=== PATIENT | male | born 1985 | race Caucasian/White ===

== ENCOUNTER → 2016-07-17 | Outpatient (CLI) | payer OTHER ==
[~2016-07-17] MED LIST: GADOBUTROL 10 MMOL/10 ML (GADAVIST) VIAL IV ONE
--- NOTE | 2016-07-17 12:12 | Diagnostic Imaging Report ---
PROCEDURE: MR imaging of the brain with and without contrast. TECHNIQUE: Multiplanar, multisequence MR imaging of the brain was performed with and without contrast. INDICATION: 3 to 4 months history of intermittent head pain. COMPARISON: I have no priors. FINDINGS: There are no foci of abnormal diffusion restriction. There are no findings of an acute or subacute ischemic infarct. No white matter pathology or cerebral edema. There is no mass or mass effect. Following the administration of intravenous contrast, there is no abnormal or suspicious enhancement. There is a mucus retention cyst within the right greater than left maxillary sinuses. No paranasal sinus air-fluid level. Brainstem, posterior fossa, and cerebellopontine angles unremarkable. There is no mastoid effusion. IMPRESSION: Mucus retention cyst in the maxillary sinuses, brain MRI otherwise normal. Dictated by: Dictated on workstation # [id number]
== END ==
LOC: RAD 10:14
PROVIDERS: ATTEND Family Medicine
DX: R51 Headache (principal); R41.3 Other amnesia
CPT/HCPCS: 70553

== ENCOUNTER → 2017-09-12 | Outpatient (CLI) | payer OTHER ==
--- NOTE | 2017-09-12 15:15 | Diagnostic Imaging Report ---
INDICATION: Neck pain. EXAMINATION: Cervical spine. AP, lateral and odontoid views were obtained. COMPARISON: There are no prior studies available for comparison. FINDINGS: On the lateral view, there is slight anterior angulation of the upper three cervical segments. This may be a sequela of prior trauma. The vertebral body heights are within normal limits. There is no fracture or acute bony abnormality evident. There is mild narrowing of the disc space at C5-6. The other intervertebral spaces are fairly well-maintained. There is no sign of retropharyngeal edema. The lung apices are clear. IMPRESSION: 1. There is no evidence for an acute bony abnormality. 2. There is mild degenerative disc disease at C5-6. 3. If there is clinical concern regarding spinal stenosis or nerve root encroachment, then MRI would be recommended for further study. Dictated by: Dictated on workstation # [id number]
== END ==
LOC: RAD 14:05
PROVIDERS: ATTEND Nurse Practitioner Family
DX: M50.322 Other cervical disc degeneration at C5-C6 level (principal)
CPT/HCPCS: 72040

== ENCOUNTER → 2017-09-19 | Outpatient (CLI) | payer OTHER ==
--- NOTE | 2017-09-19 08:26 | Diagnostic Imaging Report ---
PROCEDURE: MR imaging cervical spine without contrast. TECHNIQUE: Multiplanar, multisequence MR imaging of the cervical spine was performed without contrast. INDICATION: Chronic neck pain as well as right arm pain with numbness and tingling. Curvature and alignment of the cervical spine is normal. The vertebral body marrow signal is normal. There is fairly normal height and signal intensity to the cervical intervertebral discs. The cervical spinal cord does show an area of slightly prominent and vertically oriented fluid signal within the central portion of the cord at the level of C4-5. This measures approximately 10 mm cephalocaudal x 3 mm AP. Features are most suggestive of a small syrinx. No expansion of the spinal cord is identified. No focal disc protrusion, central canal or neuroforaminal stenosis is seen. There is some mild broad-based disc/osteophyte complex indenting the ventral thecal sac at the C5-6 level. The paraspinous tissues are unremarkable. IMPRESSION: 1. Fluid signal noted within the central aspect of the spinal cord at C4-5 level suggestive of a small syrinx. No abnormal expansion of the spinal cord is identified. There is no evidence of focal disc protrusion, central canal or neural foraminal stenosis. Dictated by: Dictated on workstation # [id number]
== END ==
LOC: RAD 07:28
PROVIDERS: ATTEND Physician Assistant
DX: M54.2 Cervicalgia (principal); G89.4 Chronic pain syndrome; M79.601 Pain in right arm; R20.0 Anesthesia of skin; R20.2 Paresthesia of skin
CPT/HCPCS: 72141

== ENCOUNTER 2018-07-05 08:31 | Outpatient (RCR) | payer OTHER | END 2018-10-03 | disposition home or self-care (01) | LOC: CARD 08:31 | PROVIDERS: ATTEND Nurse Practitioner Family | DX: R00.2 Palpitations (principal) | CPT/HCPCS: 93225; 93226 ==

== ENCOUNTER → 2018-08-14 | Outpatient (CLI) | payer OTHER | LOC: CARD 08:34 | PROVIDERS: ATTEND Internal Medicine Cardiovascular Disease | DX: R07.89 Other chest pain (principal); R00.2 Palpitations; R06.02 Shortness of breath | CPT/HCPCS: 93225; 93226 ==

== ENCOUNTER → 2018-09-10 | Outpatient (CLI) | payer OTHER | LOC: CARD 10:00 | PROVIDERS: ATTEND Internal Medicine Cardiovascular Disease | DX: R07.89 Other chest pain (principal); R00.2 Palpitations; R06.02 Shortness of breath | CPT/HCPCS: 93306; 93351 ==

== ENCOUNTER → 2019-12-10 | Outpatient (CLI) | payer OTHER ==
--- NOTE | 2019-12-10 17:24 | Diagnostic Imaging Report ---
EXAMINATION: US Scrotum w/ Duplex TECHNIQUE: Multiple real-time grayscale images were obtained of the scrotum in various projections bilaterally. Color Doppler images were also obtained. HISTORY: Right testicular pain. COMPARISON: None available. FINDINGS: The right testicle measures 4.0 x 2.2 x 2.9 cm. The left testicle measures 4.4 x 2.5 x 3.1 cm. Both testes are normal in echogenicity. No mass is seen. There are small bilateral hydroceles. There is a large left-sided varicocele. Right epididymis is normal. Left epididymis is not well seen due to the large varicocele. Duplex images reveal normal arterial inflow to both testes. IMPRESSION: 1. Large left varicocele with small bilateral hydroceles. Dictated by: Dictated on workstation # [id number]
== END ==
LOC: RAD 15:30
PROVIDERS: ATTEND Nurse Practitioner Family
DX: I86.1 Scrotal varices (principal); N43.3 Hydrocele, unspecified; K59.00 Constipation, unspecified
CPT/HCPCS: 76870

== ENCOUNTER 2020-01-05 05:35 | Outpatient (RCR) | payer OTHER ==
[~2020-01-05] VITALS: Ht 177.8 cm; Wt 77.8 kg
== END 2020-01-05 10:27 | disposition home or self-care (01) ==
LOC: PREOP 05:35
PROVIDERS: ATTEND Surgery
DX: Z01.812 Encounter for preprocedural laboratory examination (principal); K40.90 Unilateral inguinal hernia, without obstruction or gangrene, not specified as recurrent; Z20.828 Contact with and (suspected) exposure to other viral communicable diseases
CPT/HCPCS: 87635

== ENCOUNTER 2020-01-08 09:31 | Day surgery (SDC) | payer OTHER ==
[~2020-01-08] VITALS: Ht 177.8 cm; Wt 77.8 kg
[2020-01-08] VITALS (9 sets, daily range): BP systolic 109–139; BP diastolic 68–99
--- NOTE | 2020-01-08 09:41 | Progress Note-Pre Operative ---
Pre-Operative Progress Note H&P Reviewed The H&P was reviewed, patient examined and no changes noted. Date Seen by Provider: Jan 08, 2020 Time Seen by Provider: :40 Date H&P Reviewed: Jan 08, 2020 Time H&P Reviewed: :40 Pre-Operative Diagnosis: sx reducible right inguinal hernia LUIS MANUEL BUTLER MD Jan 08, 2020 09:41
[2020-01-08] MEDS ORDERED: HYDR-3817 PO ×2 (09:43)
--- NOTE | 2020-01-08 09:44 | Discharge Inst-Surgical ---
D/C Lap Instructions-LUKE New, Converted, or Re-Newed RX: RX on Chart Follow Up Appt in 2 weeks Activity as tolerated No driving for 24 hours No [address] while on pain medications Incentive Spirometry use every 2 hours while awake Regular Diet Symptoms to Report: Fever over 101 degree F, Nausea/Vomiting Infection Signs and Symptoms to report: Increased redness, Foul odor of wound, Increased drainage Bathing instructions: May shower Operative Area Clean/Dry; Keep incision clean/dry If any problems/questions: Contact your physician or go to Emergency Room LUIS MANUEL BUTLER MD Jan 08, 2020 09:44
[2020-01-08] MEDS ORDERED: oxyCODONE/APAP 5/325MG (PERCOCET 5) TABLET PO PRN (09:45)
[2020-01-08] MEDS ORDERED: ONDANSETRON 4 MG/2 ML (SDV) Z0FRAN IVP PRN ×2 (09:45→13:00)
[2020-01-08] MEDS ORDERED: ceFAZolin 2 GM IV Premixed 50 ML IV ONE (09:45)
[2020-01-08] MEDS ORDERED: ACETAMINOPHEN 325 MG TABLET PO PRN (09:45)
[2020-01-08] MEDS ORDERED: morphine INJ 10 MG/ML 1ML (SYR OR VIAL) IVP PRN ×2 (09:45)
[2020-01-08] MEDS: LACTATED RINGERS 1,000 ML IV PRN ×2 (09:57→12:00)
[2020-01-08 10:04] LABS: BASOPHILS # (AUTO) 0.1 10^3/uL (0.0-0.1); BASOPHILS % (AUTO) 1 % (0-10); EOSINOPHILS # (AUTO) 0.1 10^3/uL (0.0-0.3); EOSINOPHILS % (AUTO) 3 % (0-10); HEMATOCRIT 42 % (40-54); HEMOGLOBIN 15.2 G/DL (13.3-17.7); LYMPHOCYTES # (AUTO) 1.5 X 10^3 (1.0-4.0); LYMPHOCYTES % (AUTO) 37 % (12-44); MEAN CORPUSCULAR HEMOGLOBIN 30 PG (25-34); MEAN CORPUSCULAR HGB CONC 36 G/DL (32-36); MEAN CORPUSCULAR VOLUME 83 FL (80-99); MEAN PLATELET VOLUME 9.8 FL (7.4-10.4); MONOCYTES # (AUTO) 0.4 X 10^3 (0.0-1.0); MONOCYTES % (AUTO) 10 % (0-12); NEUTROPHILS % (AUTO) 49 % (42-75); PLATELET COUNT 210 10^3/uL (130-400); RED CELL DISTRIBUTION WIDTH 12.1 % (10.0-14.5)
--- OUTSIDE RECORDS SUMMARY | 2020-01-08 10:20 | XMS REPORT | Continuity of Care Document ---
[facility] Address Unknown Phone Unavailable Care Team Providers Care Preschool Program Director Name Role Phone [facility] Unavailable Unavailable Problems Combined list of all problems from all [facility]. It does not include entries that were removed or entered in error. Problem Status Onset Date Problem Type Date of Resolution Comments Source visit for: services physical Inactive 05/25/2005 Condition DoD fracture skull frontal / parietal bone Active Condition Satisfactory postop. Excellent recovery and results. 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 Pt counseled. No intervention indicated. DoD refractive error Active Condition DoD Medications Combined list of all outpatient medications recorded within the last 15 months b y all Department of Defense and Veterans Affairs facilities, and also all patien t-reported medications. Medication Details Route Status Patient Instructions Prescription Expires Prescript ion Number Last Dispense Date Ordering Pr ovider Order Date Source AMOXICILLIN-CLAVULANATE POTASS (amoxicil dahlia/potassium clavulanate), 875-125 MG, TABLET, ORAL, [facility], 20 ea. BOTTLE Active [id number] [place], 05/06/2019 [facility] FLUCELVAX QUAD [id number] (flu vaccine qu ad [id number](4 years and older)cell derived/PF), 60MCG/.5ML, SYRINGE, INTRAMUSC, [employer] INC[employer] .5 ml SYRINGE Active [id number] 08/21/2019 BORJA, 08/23/2019 [facility] OSELTAMIVIR PHOSPHATE (oseltamivir phosp hate), 75 MG, CAPSULE, ORAL, [employer], 10 ea. BLIST PACK Active [id number] 08/28/2019 NDIAYE, 08/30/2019 [facility] Allergies, Adverse Reactions, Alerts Combined list of all allergies from all Department of Defense and Veterans Affairs facilities. It does not include entries that were removed or entered in error. Substance Category R eaction Severity Reaction type Status Date Reported Comments Source No Known Allergies Drug allergy Drug allergy active 11/01/2018 [facility] [place] [place] Immunizations Combined list of: 1) all immunizations on record at all [facility] ies, and 2) all available immunizations on record at Department of Defense (Do D) facilities. Some immunizations on record at DoD may not be included. Immunization Series Date Given Administered By Site Reaction Lot Number CVX Code Drug Automatic Packer Operator Status Comments Source Influenza, seasonal, injectable, preservative free 0 05/24/2018 140 (MVX) completed Influenza, seasonal, injectable, preservative free DoD Influenza, seasonal, injectable, preservative free 1 03/24/2017 [id number] 140 Seqirus (SEQ) completed Influenza, seasonal, injectable, preserv ative free DoD Influenza, seasonal, injectable, preservative free 1 04/01/2016 [id number] 140 Seqirus (SEQ) completed Influenza, seasonal, injectable, preserv ative free DoD Influenza, seasonal, injectable, preservative free 1 07/17/2015 [id number] 140 TRIBAX[employer] Inc[employer] (CSL) completed Influenza, seasonal, injectable, preservative free DoD varicella virus vaccine 2 10/10/2014 [id number] 21 Merck (MSD) completed varicella virus vaccine DoD measles, mumps and rubella virus vaccine 2 08/21/2014 [id number] 03 Merck (MSD) completed measles, mumps and rubella virus vaccine DoD varicella virus vaccine 1 08/21/2014 [id number] 21 Merck (MSD) completed varicella virus vaccine DoD typhoid Vi capsular polysaccharide vaccine 1 08/21/2014 [id number] 101 Sanofi Pasteur ([facility]MC) completed typhoid Vi capsular polysaccharide vacci ne DoD Influenza, seasonal, injectable, preservative free 1 03/28/2014 [id number] 140 Novartis deeplocal Alana. (NOV) completed Influenza, seasonal, injectable, preservative free DoD influenza virus vaccine, unspecified formulation 1 06/10/2013 [id number] 88 Unknown (UNK) completed influenza virus vaccine, unspecified for mulation DoD Influenza, seasonal, injectable, preservative free 1 03/24/2012 [id number] 140 [employer] (CSL) completed Influenza, seasonal, injectable, preservative free DoD influenza virus vaccine, unspecified formulation 1 04/17/2011 UNK 88 Sanofi Pasteur ([facility]MC) completed influenza virus vaccine, unspecified for mulation DoD Influenza, injectable, [place] Canin e Kidney, quadrivalent with preservative 0 04/17/2011 141 Sanofi Pasteur ([facility]) completed Influenza, injectabl e, Madin [place] Canine Kidney, quadrivalent with preservative DoD tetanus toxoid, reduced diphtheria toxoi d, and acellular pertussis vaccine, adsorbed 1 01/27/2011 [id number] 115 [facility] ([facility] completed tetanus toxoid, reduced diphtheria toxoid, and acellular pertussis vaccine, adsorbed DoD influenza virus vaccine, split virus (in cl. purified surface antigen)-retired CODE 1 04/06/2007 [id number] 15 [facility] ([facility]) completed influenza virus vaccine, split virus (incl. purified surface antigen)-retired CODE DoD hepatitis A and hepatitis B vaccine 3 05/24/2005 [id number] 104 Unknown (UNK) completed hepatitis A and hepatitis B vaccine DoD influenza virus vaccine, split virus (in cl. purified surface antigen)-retired CODE 1 04/09/2005 [id number] 15 U nknown (UNK) completed influenza virus vacc ine, split virus (incl. purified surface antigen)-retired CODE DoD anthrax vaccine 2 04/06/2004 UNK 24 Unkno wn (UNK) completed anthrax vaccine DoD anthrax vaccine 1 03/23/2004 UNK 24 Unkno wn (UNK) completed anthrax vaccine DoD vaccinia (smallpox) vaccine 1 03/23/2004 UNK 75 Unknown (UNK) completed vaccinia (smallpox) vaccine DoD hepatitis B vaccine, adult dosage 1 11/28/2003 [id number] 3 [facility] ([facility]) completed hepatitis B vaccine, adult dosage DoD hepatitis A vaccine, adult dosage 1 11/28/2003 [id number] 52 [facility] ([facility]) completed hepatitis A vaccine, adult dosage DoD typhoid Vi capsular polysaccharide vaccine 1 11/28/2003 [id number] 101 [employer] ([facility]) completed typhoid Vi capsular polysaccharide vacci ne DoD influenza virus vaccine, split virus (in cl. purified surface antigen)-retired CODE 1 04/10/2003 [id number] 15 Un known (UNK) completed influenza virus vacc ine, split virus (incl. purified surface antigen)-retired CODE DoD measles, mumps and rubella virus vaccine 1 02/26/2003 [id number] 03 Merck (MSD) completed measles, mumps and rubella virus vaccine DoD tetanus and diphtheria toxoids, adsorbed , preservative free, for adult use (2 Lf of tetanus toxoid and 2 Lf of diphtheria toxoid) 1 02/26/2003 [id number] 09 Unknown (UNK) completed tetanus and diphtheria toxoids, adsorbed , preservative free, for adult use (2 Lf of tetanus toxoid and 2 Lf of diphtheria toxoid) [facility] poliovirus vaccine, inactivated 1 02/26/2003 [id number] 10 Unknown (UNK) completed poliovirus vaccine, inactivated DoD meningococcal vaccine of unknown formula tion and unknown serogroups 1 02/26/2003 [id number] 32 Unknown (UNK) completed meningococcal vaccin e of unknown formulation and unknown serogroups DoD hepatitis A and hepatitis B vaccine 1 02/26/2003 [id number] 10 4 Unknown (UNK) completed hepatitis A and hepatitis B vaccine [facility] Results No Data Provided for This Section Vital Signs Combined list of inpatient and outpatient Vital Signs from all [facility] and/or [facility] medical facilities within the last 15 months. The included entries comply with the patient's data sharing authorizations. Vital Sign Value Date Comments Source Blood pressure, systolic (BPS), 124mm[Hg] 11/01/2018 14:05:18 [place] [facility] Janette SHABAZZ Respiratory rate (breaths) 19/ min [facility]01[facility]2018 [facility] Pulse taking 65/min 11/01/2018 14:05:18 [facility] Janette SHABAZZ Blood pressure, diastolic (BPD) 81mm[Hg] 11/01/2018 14:05:18 [facility] Janette SHABAZZ BMI 24.39kg/m2 11/01/2018 14:05:18 [place] [facility] Janette SHABAZZ Patient's height value 70[in_i] 11/01/2018 14:05:18 [place] [facility] Janette SHABAZZ BSA 1.95m2 0 11/01/2018 [facility] Weight (body weight) 170[lb_av] 11/01/2018 14:05:18 [place] [facility] Janette SHABAZZ Encounters Combined list of encounters at Department of Defense and/or Veterans Affairs (VA ) for the last 15 months. Not all VA inpatient encounters are included. The incl uded entries comply with the patient's data sharing authorizations. Location Location Details Encounter Type Encounter Number Reason For Visit Attending Provider ADM Date DC Date Status Disposition Source OUTPATIENT [id number] W JASSIRAJEEV Margarito 03/25/2004 Released w/o Limitations [place]) OUTPATIENT [id number] Facial Fracture DOSS, MARK Jeaneth 05/25/2005 Released w/o Limitations [place] TELE CONSU LT [id number] Notes Entered by: JEAN-PAUL RAJPUT 22 Oct 2018 1538 VIRTUAL PHA - ADRIÁN VAN 10/22/2018 [facility] HARIKA Hairston([facility] [place]) OUTPATIENT [id number] KATHRYN ROJAS 10/30/2018 Released w/o Limitations [facility] Karissa [place]([facility] [place] Procedures Combined list of general procedure/surgical history for the last 15 months on re cord at Department of Defense and Veterans Affairs (VA) facilities. Not all VA p rocedures are included. Procedure Procedure Type Code Date Perfomer Comments Source Preventive Med Standardized Depression S creening: Negative For Symptoms Preventive Med Standardized Depression S creening: Negative For Symptoms 3351F KATHRYN OCONNELL DoD Social History Combined list of available smoking, tobacco, and other social history on record at Department of Defense and/or Veterans Affairs facilities. The included entrie s comply with the patient's data sharing authorizations. Social History Type Response Date Comment Source This section is an empty social history section. DoD Assessment and Plan No Data Provided for This Section Plan of Care No Data Provided for This Section Family History No Data Provided for This Section Advance Directives No Data Provided for This Section Functional Status No Data Provided for This Section
--- OUTSIDE RECORDS SUMMARY | 2020-01-08 10:20 | XMS REPORT | CCD ---
Author Author Malvin Villegas Organization [facility] Address [address] [place] [address] Phone Care Team Providers Care Supervisor [employer] Name Role Phone PP Unavailable CCM Unavailable Summary Purpose Interface Exchange Insurance Providers Payer name Policy type / Coverage type Covered alliance party ID Effective Begin Date Effective End Date MARYANNE BULL (2012 THRU) Emma [id number] Unknown Unknown Family history Father Diagnosis Age At Onset Cardiomyopathy Unknown Social History Social History Element Codes Description Effective Dates Marital status Unknown M kenya Griffith 12/19/2017 Number of children Unknown 3 09/29/[address]: 760468498 Never smoker 09/29/2015 Alcohol history Unknown occasionally drinks alcohol 09/29/2015 Allergies, Adverse Reactions, Alerts Substance Reaction Codes Entered Date Inactivated Date Status * NO KNOWN DRUG JERRY RGIES Unknown 09/29/2015 No Inactive Date Active Past Medical History Illness Codes Condition Status Onset Date Resolved Date Other insomnia ICD-9: 327.09 ICD-10: G47.09 Active 07/01/2018 Unknown Pain in right knee ICD- 9: 719.46 ICD-10: M25.561 Active 07/01/2018 Unknown Palpitations ICD-9: 785.1 ICD-10: R00.2 Active 07/01/2018 Unknown Other acute sinusitis ICD-9: 461.8 ICD-10: J01.80 Active 02/10/2016 Unknown Other allergic rhinitis ICD-9: 477.8 ICD-10: J30.89 Active 05/13/2018 Unknown 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] ICD-9: 733.6 ICD-10: M94.0 Active 12/19/2017 Unknown Dizziness and giddiness ICD-9: 780.4 ICD-10: R42 Active 12/19/2017 Unknown Other allergic and d ietetic gastroenteritis and colitis ICD-9: 558.3 ICD-10: K52.29 Active 12/19/2017 Unknown Cervicalgia ICD-9: 723.1 ICD-10: M54.2 Active 09/13/2017 Unknown Muscle spasm of back ICD-9: 724.8 ICD-10: M62.830 Active 09/13/2017 Unknown Diabetes Unknown Active 10/23/2016 Unknow n Acute recurrent maxi llary sinusitis ICD-9: 461.0 ICD-10: J01.01 Active 04/06/2016 Unknown Cough ICD-9: 786.2 ICD-10: R05 Active 04/06/2016 Unknown Headache ICD-9: 784.0 ICD-10: R51 Active 06/26/2016 Unknown Other headache syndrome ICD-9: 339.89 ICD-10: G44.89 Active 06/26/2016 Unknown Retrograde amnesia ICD- 9: 780.93 ICD-10: R41.2 Active 06/26/2016 Unknown Other hypertrophic d isorders of the skin ICD-9: 701.9 ICD-10: L91.8 Active 12/01/2015 Unknown Acute upper respirat ory infection, unspecified ICD-9: 465.9 ICD-10: J06.9 Active 09/28/2015 Unknown Problems Condition Codes Effectiv e Dates Condition Status Other insomnia ICD-9: 327.09 ICD-10: G47.09 07/01/2018 Active Pain in right knee ICD- 9: 719.46 ICD-10: M25.561 07/01/2018 Active Palpitations ICD-9: 785.1 ICD-10: R00.2 07/01/2018 Active Other acute sinusitis ICD-9: 461.8 ICD-10: J01.80 02/10/2016 Active Other allergic rhinitis ICD-9: 477.8 ICD-10: J30.89 05/13/2018 Active 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] ICD-9: 733.6 ICD-10: M94.0 12/19/2017 Active Dizziness and giddiness ICD-9: 780.4 ICD-10: R42 12/19/2017 Active Other allergic and d ietetic gastroenteritis and colitis ICD-9: 558.3 ICD-10: K52.29 12/19/2017 Active Cervicalgia ICD-9: 723.1 ICD-10: M54.2 09/13/2017 Active Muscle spasm of back ICD-9: 724.8 ICD-10: M62.830 09/13/2017 Active Diabetes Unknown 10/23/2016 Active Acute recurrent maxi llary sinusitis ICD-9: 461.0 ICD-10: J01.01 04/06/2016 Active Cough ICD-9: 786.2 ICD-10: R05 04/06/2016 Active Headache ICD-9: 784.0 ICD-10: R51 06/26/2016 Active Other headache syndrome ICD-9: 339.89 ICD-10: G44.89 06/26/2016 Active Retrograde amnesia ICD- 9: 780.93 ICD-10: R41.2 06/26/2016 Active Other hypertrophic d isorders of the skin ICD-9: 701.9 ICD-10: L91.8 12/01/2015 Active Acute upper respirat ory infection, unspecified ICD-9: 465.9 ICD-10: J06.9 09/28/2015 Active Medications Medication Codes Instruc tions Start Date Stop Date Sta tus Fill Instructions Tamiflu 75 mg capsule RxNorm: 344033 1 Capsule(s) PO daily 07/19/2018 07/28/2018 Active Tamiflu 75 mg capsule RxNorm: 856647 1 Capsule(s) PO daily 07/19/2018 07/18/2018 Inactive Augmentin 875 mg-125 mg tablet RxNorm: 589501 1 Tablet(s) PO BID 05/13/2018 05/19/2018 Inactive Kenalog 40 mg/mL chacha pension for injection RxNorm: 5102899 1 Milliliter(s) Inj 05/13/2018 05/13/2018 In active propranolol 10 mg ta blet RxNorm: 365139 1/2 Tablet(s) daily 12/19/2017 12/21/2018 Active 11/19/2017 11:27:19 AM propranolol 10 mg ta blet RxNorm: 921151 TAKE 1 TABLET BY MOUT H TWICE DAILY 11/20/2017 12/18/2017 In active 11/19/2017 11:27:19 AM cyclobenzaprine 5 mg tablet RxNorm: 578002 1-2 Tablet(s) PO TID as needed 09/13/2017 09/17/2017 In active Zorvolex 18 mg capsule RxNorm: 2263922 1 Capsule(s) PO TID 09/13/2017 12/18/2017 Inactive propranolol 10 mg ta blet RxNorm: 889159 1 Tablet(s) PO BID 06/07/2017 09/04/2017 Inactive prednisone 20 mg tablet RxNorm: 985925 2 Tablet(s) PO daily 10/23/2016 10/27/2016 Inactive Augmentin 875 mg-125 mg tablet RxNorm: 426106 1 Tablet(s) PO BID 10/23/2016 10/29/2016 Inactive propranolol 10 mg ta blet RxNorm: 198762 1 Tablet(s) PO BID 06/29/2016 09/26/2016 Inactive Fish Oil 360 mg-1,20 0 mg capsule RxNorm: 852130 1 Capsule(s) PO BID 06/29/2016 12/18/2017 Inactive propranolol 10 mg ta blet RxNorm: 463188 1 Tablet(s) PO BID 06/27/2016 06/28/2016 Inactive ceftriaxone 500 mg s olution for injection RxNorm: 9195940 Inj 04/07/2016 04/07/2016 Inactive Kenalog 40 mg/mL chacha pension for injection RxNorm: 9910738 Milliliter(s) Inj 04/07/2016 04/07/2016 In active Zithromax Z-Devon 250 mg tablet RxNorm: 097039 1 Tablet(s) PO UD 04/07/2016 04/11/2016 Inactive zpack Augmentin 875 mg-125 mg tablet RxNorm: 077465 1 Tablet(s) PO BID 02/11/2016 02/20/2016 Inactive Zithromax Z-Devon 250 mg tablet RxNorm: 923632 Tablet(s) PO UD 09/29/2015 12/01/2015 Inactive Sudafed 24 Hour oral RxNorm: 47628 oral No Start Date Active Fish Oil 360 mg-1,20 0 mg capsule RxNorm: 205226 1 Capsule(s) PO BID No Start Date 06/28/2016 Inactive Medication Administered Medication Codes Instruc tions Start Date Status Kenalog 40 mg/mL suspension for injection RxNorm: 3863496 1Milliliter 05/13/2018 N o longer Active ceftriaxone 500 mg solution for injection RxNorm: 9050222 04/07/2016 No longer A ctive Kenalog 40 mg/mL suspension for injection RxNorm: 8865243 Milliliter 04/07/2016 No longer Active Immunizations Vaccine Codes Date Status Influenza CVX: 141 05/24 completed Influenza CVX: 141 12/09 completed Assessments Condition Codes Effectiv e Dates Other insomnia ICD-10: G47.09 ICD-9: 327.09 07/01/2018 Pain in right knee ICD-10: M25.561 ICD-9: 719.46 07/01/2018 Palpitations ICD-10: R00.2 ICD-9: 785.1 07/01/2018 Other acute sinusitis ICD-10: J01.80 ICD-9: 461.8 05/13/2018 Other allergic rhinitis ICD-10: J30. 89 ICD-9: 477.8 05/13/2018 Other allergic and dietetic gastroenteritis and coliti s ICD- 10: K52.29 ICD-9: 558.3 12/19/2017 Chondrocostal junction syndrome [Tietze] ICD-10: M94.0 ICD-9: 733.6 12/19/2017 Dizziness and giddiness ICD-10: R42 ICD-9: 780.4 12/19/2017 Cervicalgia ICD-10: M54.2 ICD-9: 723.1 09/13/2017 Muscle spasm of back ICD-10: M62.830 ICD-9: 724.8 09/13/2017 Acute recurrent maxillary sinusitis ICD-10: J01.01 ICD-9: 461.0 10/23/2016 Cough ICD-10: R05 ICD-9: 786.2 10/23/2016 Headache ICD-10: R51 ICD-9: 784.0 06/27/2016 Retrograde amnesia ICD-10: R41.2 ICD-9: 780.93 06/27/2016 Other headache syndrome ICD-10: G44. 89 ICD-9: 339.89 06/27/2016 Other hypertrophic disorders of the skin ICD-10: L91.8 ICD-9: 701.9 12/02/2015 Acute upper respiratory infection, unspecified ICD-10: J06.9 ICD-9: 465.9 09/29/2015 Reason For Visit Reason For Visit Effective Dates Notes insomnia 07/01/2018 he h as tried melatonin- he says made it worse sinus congestion 05/13/2018 chest pain/pressure 12/19/2017 neck pain 09/13/2017 sinus congestion 10/23/2016 headache 06/27/2016 cough 04/07/2016 sinus congestion 02/11/2016 mole check 12/02/2015 cough 09/29/2015 Results Observation Observation Code Item Item Code Result Date Sed Rate Ord21 ESR 1 mm/hr 06/28/2016 C-Reactive Protein Qnt Crqnt CRP 0.1 mg/dl 06/28/2016 Cbc With Differential Ord2 WBC 5.22 K/ul 06/28/2016 Cbc With Differential Ord2 RBC 5.01 M/ul 06/28/2016 Cbc With Differential Ord2 HGB 15.3 g/dl 06/28/2016 Cbc With Differential Ord2 Neut% 49.8 % 06/28/2016 Cbc With Differential Ord2 HCT 42.7 % 06/28/2016 Cbc With Differential Ord2 Lymph% 33.3 % 06/28/2016 Cbc With Differential Ord2 MCV 85.2 fl 06/28/2016 Cbc With Differential Ord2 MCH 30.5 pg 06/28/2016 Cbc With Differential Ord2 [place]% 12.8 % 06/28/2016 Cbc With Differential Ord2 MCHC 35.8 pg 06/28/2016 Cbc With Differential Ord2 Eos% 3.1 % 06/28/2016 Cbc With Differential Ord2 Baso% 1.0 % 06/28/2016 Cbc With Differential Ord2 PLT 211 K/ul 06/28/2016 Cbc With Differential Ord2 RDW 12.8 % 06/28/2016 Cbc With Differential Ord2 Neut ABS# 2.60 K/ul 06/28/2016 Cbc With Differential Ord2 Lymph ABS# 1.74 K/ul 06/28/2016 Cbc With Differential Ord2 [place] ABS# 0.7 K/ul 06/28/2016 Cbc With Differential Ord2 Eos ABS# 0.2 K/ul 06/28/2016 Cbc With Differential Ord2 Baso ABS# 0.1 K/ul 06/28/2016 Comp Metabolic Ven232 NA 140 mEq/L 06/28/2016 Comp Metabolic Wyp695 K 4.1 mEq/L 06/28/2016 Comp Metabolic Ius019 CL 104 mEq/L 06/28/2016 Comp Metabolic Ulb175 CO2 28.0 mEq/L 06/28/2016 Comp Metabolic Lni636 AN ION GAP 12 06/28/2016 Comp Metabolic Uoc927 GL UCOSE 93 mg/dL 06/28/2016 Comp Metabolic Jev944 Cr eat 1.0 mg/dL 06/28/2016 Comp Metabolic Gro863 eG FR 97 ml/min/1.73m2 06/28 Comp Metabolic Yum271 BUN 12 mg/dL 06/28/2016 Comp Metabolic Amc679 B/ C Ratio 12.6 Ratio 06/28/2016 Comp Metabolic Rkl562 CA LCIUM 9.6 mg/dL 06/28/2016 Comp Metabolic Yoq059 AL K PHOS 73 U/L 06/28/2016 Comp Metabolic Epe061 T(SGOT) 18 U/L 06/28/2016 Comp Metabolic Etq804 AL T(SGPT) 31 U/L 06/28/2016 Comp Metabolic Ltl946 BI LI T 0.5 mg/dL 06/28/2016 Comp Metabolic Mwc431 AL BUMIN 4.8 g/dL 06/28/2016 Comp Metabolic Qla322 TP RO 6.9 g/dL 06/28/2016 Comp Metabolic Pzw613 GL OB 2.1 g/dL 06/28/2016 Comp Metabolic Blk242 A/ G Ratio 2.2 Ratio 06/28/2016 Comp Metabolic Njk150 Os mo 279 mOsmo 06/28/2016 Tsh Ord6 hTSH II 1.35 uIU/mL 06/28/2016 Lipid Ord30 CHOL 237 mg/dL 06/28/2016 Lipid Ord30 HDL 42.0 mg/dl 06/28/2016 Lipid Ord30 TRIG 126 mg/dL 06/28/2016 Lipid Ord30 LDL 170 mg/dL 06/28/2016 Lipid Ord30 C/HDL 5.6 Ratio 06/28/2016 Review of Systems System Result Effective Dates Constitutional No anorexia 07/01/2018 Constitutional No night sweats 07/01/2018 Constitutional No chills 07/01/2018 Constitutional No diaphoresis 07/01/2018 Constitutional No fatigue 07/01/2018 Constitutional No fever 07/01/2018 Constitutional insomnia 07/01/2018 Constitutional No malaise 07/01/2018 Eyes No eye discharge Eyes No eye erythema Ears/Nose/Throat/Neck headache 07/01/2018 Ears/Nose/Throat/Neck No sore throat 07/01/2018 Ears/Nose/Throat/Neck sinus congestion 07/01/2018 Cardiovascular No chest pain/pressure 07/01/2018 Cardiovascular No dyspnea 07/01/2018 Respiratory No chest congestion 07/01/2018 Respiratory No cough Respiratory No dyspnea on exertion 07/01/2018 Gastrointestinal No abdominal pain 07/01/2018 Gastrointestinal No constipation 07/01/2018 Gastrointestinal No diarrhea 07/01/2018 Genitourinary/Nephrology No dysuria 07/01/2018 Musculoskeletal joint complaint 07/01/2018 Dermatologic No rash Psychiatric No anxiety 0 07/01/2018 Psychiatric No depression 07/01/2018 Constitutional No weight loss 07/01/2018 Constitutional No weight gain 07/01/2018 Cardiovascular palpitations 07/01/2018 Neurologic No alteration of consciousness 07/01/2018 Constitutional recent illness 05/13/2018 Constitutional No chills 05/13/2018 Constitutional No diaphoresis 05/13/2018 Constitutional No fever 05/13/2018 Eyes No eye erythema 08/2017 Ears/Nose/Throat/Neck nasal allergies 05/13/2018 Ears/Nose/Throat/Neck nasal discharge 05/13/2018 Ears/Nose/Throat/Neck postnasal drip 05/13/2018 Ears/Nose/Throat/Neck sinus congestion 05/13/2018 Ears/Nose/Throat/Neck No sore throat 05/13/2018 Cardiovascular No chest pain/pressure 05/13/2018 Cardiovascular No dyspnea 05/13/2018 Respiratory No chest congestion 05/13/2018 Respiratory cough 2017 Respiratory No dyspnea 1 07/14/2017 Gastrointestinal No abdominal pain 05/13/2018 Gastrointestinal No constipation 05/13/2018 Gastrointestinal No diarrhea 05/13/2018 Gastrointestinal No nausea 05/13/2018 Gastrointestinal No vomiting 05/13/2018 Dermatologic No rash 08/2017 Neurologic No alteration of consciousness 05/13/2018 Neurologic No mental status change 05/13/2018 Constitutional No recent illness 12/19/2017 Constitutional No chills 12/19/2017 Constitutional No fever 12/19/2017 Eyes No blindness 2017 Ears/Nose/Throat/Neck No nasal discharge 12/19/2017 Cardiovascular chest pain/pressure 12/19/2017 Cardiovascular No dyspnea 12/19/2017 Respiratory No cough 04/2018 Respiratory No dyspnea 0 12/19/2017 Musculoskeletal neck pain 12/19/2017 Neurologic No alteration of consciousness 12/19/2017 Neurologic No mental status change 12/19/2017 Gastrointestinal No abdominal pain 12/19/2017 Gastrointestinal diarrhea 12/19/2017 Psychiatric No anxiety 0 12/19/2017 Psychiatric No depression 12/19/2017 Constitutional No recent illness 09/13/2017 Constitutional No chills 09/13/2017 Constitutional No fever 09/13/2017 Eyes No eye erythema 10/2017 Ears/Nose/Throat/Neck No nasal discharge 09/13/2017 Cardiovascular No chest pain/pressure 09/13/2017 Cardiovascular No dyspnea 09/13/2017 Respiratory No cough 10/2017 Respiratory No dyspnea 0 09/13/2017 Neurologic No alteration of consciousness 09/13/2017 Neurologic No mental status change 09/13/2017 Musculoskeletal neck pain 09/13/2017 Constitutional recent illness 10/23/2016 Constitutional No anorexia 10/23/2016 Constitutional No night sweats 10/23/2016 Constitutional No chills 10/23/2016 Constitutional No diaphoresis 10/23/2016 Constitutional No fatigue 10/23/2016 Constitutional No fever 10/23/2016 Constitutional No insomnia 10/23/2016 Constitutional No malaise 10/23/2016 Constitutional No weight loss 10/23/2016 Constitutional No weight gain 10/23/2016 Eyes No eye discharge Eyes No eye erythema Ears/Nose/Throat/Neck No dizziness 10/23/2016 Ears/Nose/Throat/Neck headache 10/23/2016 Ears/Nose/Throat/Neck nasal allergies 10/23/2016 Ears/Nose/Throat/Neck nasal discharge 10/23/2016 Ears/Nose/Throat/Neck otalgia 10/23/2016 Ears/Nose/Throat/Neck sinus congestion 10/23/2016 Ears/Nose/Throat/Neck No sore throat 10/23/2016 Cardiovascular No chest pain/pressure 10/23/2016 Cardiovascular No dyspnea 10/23/2016 Cardiovascular No edema 10/23/2016 Respiratory No productive sputum 10/23/2016 Respiratory chest congestion 10/23/2016 Respiratory cough 2016 Respiratory dyspnea on exertion 10/23/2016 Gastrointestinal No abdominal pain 10/23/2016 Gastrointestinal No constipation 10/23/2016 Gastrointestinal No diarrhea 10/23/2016 Genitourinary/Nephrology No dysuria 10/23/2016 Musculoskeletal No joint complaint 10/23/2016 Dermatologic No rash Neurologic No alteration of consciousness 10/23/2016 Constitutional No anorexia 06/27/2016 Constitutional No night sweats 06/27/2016 Constitutional No chills 06/27/2016 Constitutional No diaphoresis 06/27/2016 Constitutional No fatigue 06/27/2016 Constitutional No fever 06/27/2016 Constitutional No insomnia 06/27/2016 Constitutional No malaise 06/27/2016 Eyes No eye discharge Eyes No eye erythema Ears/Nose/Throat/Neck headache 06/27/2016 Ears/Nose/Throat/Neck No sore throat 06/27/2016 Cardiovascular No chest pain/pressure 06/27/2016 Cardiovascular No dyspnea 06/27/2016 Respiratory No cough Gastrointestinal No abdominal pain 06/27/2016 Gastrointestinal No constipation 06/27/2016 Gastrointestinal No diarrhea 06/27/2016 Genitourinary/Nephrology No dysuria 06/27/2016 Musculoskeletal No joint complaint 06/27/2016 Dermatologic No rash Ears/Nose/Throat/Neck sinus congestion 06/27/2016 Respiratory No dyspnea on exertion 06/27/2016 Respiratory No chest congestion 06/27/2016 Neurologic vision change 06/27/2016 Neurologic memory loss 0 06/27/2016 Neurologic neck pain Neurologic headache 06/11 Psychiatric No anxiety 0 06/27/2016 Psychiatric No depression 06/27/2016 Constitutional recent illness 04/07/2016 Constitutional No anorexia 04/07/2016 Constitutional No night sweats 04/07/2016 Constitutional No chills 04/07/2016 Constitutional No diaphoresis 04/07/2016 Constitutional No fatigue 04/07/2016 Constitutional No fever 04/07/2016 Constitutional No insomnia 04/07/2016 Constitutional No malaise 04/07/2016 Eyes No eye erythema Eyes No eye discharge Ears/Nose/Throat/Neck headache 04/07/2016 Ears/Nose/Throat/Neck nasal discharge 04/07/2016 Ears/Nose/Throat/Neck otalgia 04/07/2016 Ears/Nose/Throat/Neck sinus congestion 04/07/2016 Ears/Nose/Throat/Neck No sore throat 04/07/2016 Cardiovascular No chest pain/pressure 04/07/2016 Cardiovascular No dyspnea 04/07/2016 Respiratory cough 2015 Respiratory chest congestion 04/07/2016 Gastrointestinal No abdominal pain 04/07/2016 Gastrointestinal No diarrhea 04/07/2016 Gastrointestinal No constipation 04/07/2016 Genitourinary/Nephrology No dysuria 04/07/2016 Musculoskeletal No joint complaint 04/07/2016 Dermatologic No rash Constitutional recent illness 02/11/2016 Constitutional No diaphoresis 02/11/2016 Constitutional fever 07/2015 Constitutional malaise 0 02/11/2016 Eyes No eye erythema 07/2015 Ears/Nose/Throat/Neck nasal allergies 02/11/2016 Ears/Nose/Throat/Neck nasal discharge 02/11/2016 Ears/Nose/Throat/Neck otalgia 02/11/2016 Ears/Nose/Throat/Neck postnasal drip 02/11/2016 Ears/Nose/Throat/Neck sinus congestion 02/11/2016 Cardiovascular No chest pain/pressure 02/11/2016 Cardiovascular No dyspnea 02/11/2016 Cardiovascular No edema 02/11/2016 Respiratory productive sputum 02/11/2016 Respiratory cough 2015 Gastrointestinal No nausea 02/11/2016 Gastrointestinal No vomiting 02/11/2016 Musculoskeletal No joint complaint 02/11/2016 Dermatologic No rash 07/2015 Dermatologic No sores Neurologic No alteration of consciousness 02/11/2016 Neurologic No mental status change 02/11/2016 Constitutional No chills 02/11/2016 Gastrointestinal No abdominal pain 02/11/2016 Constitutional No recent illness 12/02/2015 Constitutional No chills 12/02/2015 Constitutional No fatigue 12/02/2015 Constitutional No fever 12/02/2015 Cardiovascular No dyspnea 12/02/2015 Respiratory No cough Respiratory No chest congestion 12/02/2015 Dermatologic mole change 12/02/2015 Dermatologic acrochordon (skin tags) 12/02/2015 Constitutional recent illness 09/29/2015 Constitutional chills Constitutional No diaphoresis 09/29/2015 Constitutional No fatigue 09/29/2015 Constitutional fever Constitutional No insomnia 09/29/2015 Constitutional No malaise 09/29/2015 Eyes No eye erythema Ears/Nose/Throat/Neck nasal discharge 09/29/2015 Ears/Nose/Throat/Neck nasal allergies 09/29/2015 Ears/Nose/Throat/Neck No otalgia 09/29/2015 Ears/Nose/Throat/Neck postnasal drip 09/29/2015 Ears/Nose/Throat/Neck sinus congestion 09/29/2015 Cardiovascular No chest pain/pressure 09/29/2015 Cardiovascular No dyspnea 09/29/2015 Cardiovascular No edema 09/29/2015 Respiratory cough 2015 Respiratory productive sputum 09/29/2015 Respiratory No chest congestion 09/29/2015 Gastrointestinal No abdominal pain 09/29/2015 Gastrointestinal No constipation 09/29/2015 Gastrointestinal No diarrhea 09/29/2015 Gastrointestinal No nausea 09/29/2015 Gastrointestinal No vomiting 09/29/2015 Genitourinary/Nephrology No dysuria 09/29/2015 Musculoskeletal No joint complaint 09/29/2015 Dermatologic No rash Dermatologic No sores Neurologic No alteration of consciousness 09/29/2015 Neurologic No mental status change 09/29/2015 Physical Exam Exam Name System Name It em Name Status Result Effective Dates Notes Full Exam - General 1994 Constitutional general appearance Development: well developed 07/01/2018 None Full Exam - General 1994 Constitutional general appearance Development: appears stated age 0107/01/2018 None Full Exam - General 1994 Constitutional general appearance Hygiene/Attention to Grooming: good hygiene 07/01/2018 None Full Exam - General 1994 Eyes conjunctiva/eyelids Overall: conjunctiva clear 07/01/2018 None Full Exam - General 1994 Eyes conjunctiva/eyelids Overall: cornea clear 07/01/2018 None Full Exam - General 1994 Eyes conjunctiva/eyelids Overall: eyelids normal 07/01/2018 None Full Exam - General 1994 Eyes pupils and irises Overall: pupils equal, round, reactive to light and accomodation 07/01/2018 None Full Exam - General 1994 Ears/Nose/Throat otoscopic exam Overall: external auditory canals clear 07/01/2018 None Full Exam - General 1994 Ears/Nose/Throat otoscopic exam Overall: tympanic membranes clear 07/01/2018 None Full Exam - General 1994 Ears/Nose/Throat lips/teeth/gingiva Overall: benign lips 07/01/2018 None Full Exam - General 1994 Ears/Nose/Throat lips/teeth/gingiva Overall: normal dentition 07/01/2018 None Full Exam - General 1995 Ears/Nose/Throat oral cavity/pharynx/larynx Overall: oral mucosa clear 07/01/2018 None Full Exam - General 1995 Ears/Nose/Throat oral cavity/pharynx/larynx Overall: oropharyngeal mucosa clear 07/01/2018 None Full Exam - General 1995 Ears/Nose/Throat oral cavity/pharynx/larynx Overall: hypopharynx benign 07/01/2018 None Full Exam - General 1994 Ears/Nose/Throat oral cavity/pharynx/larynx Overall: no masses 07/01/2018 None Full Exam - General 1994 Respiratory auscultation Overall: breath sounds clear bilaterally 07/01/2018 None Full Exam - General 1994 Respiratory respiratory effort/rhythm Overall: no retractions 07/01/2018 None Full Exam - General 1994 Respiratory respiratory effort/rhythm Overall: normal rate 07/01/2018 None Full Exam - General 1994 Cardiovascular extremities Overall: no clubbing 07/01/2018 None Full Exam - General 1994 Cardiovascular auscultation of heart Overall: regular rate 07/01/2018 None Full Exam - General 1994 Cardiovascular auscultation of heart Overall: normal heart sounds 07/01/2018 None Full Exam - General 1994 Abdomen abdominal exam Overall: no tenderness 07/01/2018 None Full Exam - General 1994 Abdomen abdominal exam Overall: normal bowel sounds 07/01/2018 None Full Exam - General 1994 Neurologic deep tendon reflexes Overall: deep tendon reflexes intact 07/01/2018 None Full Exam - General 1994 Neurologic cranial nerves Overall: crainial nerves 2 - 12 grossly intact 07/01/2018 None Full Exam - General 1994 Psychiatric orientation/consciousness Overall: oriented to person, place and time 07/01/2018 None Full Exam - General 1994 Psychiatric mood and affect Overall: normal mood and affect 07/01/2018 None Full Exam - General 1994 Musculoskeletal lower extremity Overall: knee benign 07/01/2018 None Full Exam - General 1994 Musculoskeletal lower extremity Palpation - knee: no effusion 07/01/2018 tender lateral knee Full Exam - ENT Constitutional general appearance Overall: well nourished 05/13/2018 None Full Exam - ENT Constitutional general appearance Overall: well developed 05/13/2018 None Full Exam - ENT Constitutional general appearance Overall: in no acute distress 05/13/2018 None Full Exam - ENT Ears/Nose/Throat otoscopic exam Overall: external auditory canals normal 05/13/2018 None Full Exam - ENT Ears/Nose/Throat otoscopic exam Left tympanic membrane: air-fluid le reilly 05/13/2018 None Full Exam - ENT Ears/Nose/Throat otoscopic exam Right tympanic membrane: air-fluid level 05/13/2018 None Full Exam - ENT Ears/Nose/Throat nasal mucosa, septum, turbinates Drainage: clear 05/13/2018 None Full Exam - ENT Ears/Nose/Throat nasal mucosa, septum, turbinates Drainage: yellow 05/13/2018 None Full Exam - ENT Ears/Nose/Throat lips/teeth/gingiva Overall: benign lips 05/13/2018 None Full Exam - ENT Ears/Nose/Throat oropharynx Posterior Pharynx: clear post nasal drainage 05/13/2018 None Full Exam - ENT Face and Head palpation Left maxillary sinus: tender 05/13/2018 None Full Exam - ENT Face and Head palpation Right maxillary sinus: tender 05/13/2018 None Full Exam - ENT Respiratory inspection Overall: no retractions 05/13/2018 None Full Exam - ENT Respiratory inspection Overall: normal rate 08/2017 None Full Exam - ENT Respiratory auscultation Overall: breath sounds clear bilater ally 05/13/2018 None Full Exam - ENT Cardiovascular auscultation of heart Overall: regular rate 05/13/2018 None Full Exam - ENT Cardiovascular auscultation of heart Overall: normal heart sounds 05/13/2018 None Full Exam - ENT Lymphatic palpation of lymph nodes Overall: anterior cervical chain benign 05/13/2018 None Full Exam - ENT Lymphatic palpation of lymph nodes Overall: posterior cervical chain benign 05/13/2018 None Full Exam - ENT Neurologic mood and affect Overall: normal mood 05/13/2018 None Full Exam - ENT Neurologic mood and affect Overall: normal affect 05/13/2018 None Full Exam - ENT Neurologic orientation Overall: oriented to person, place a nd time 05/13/2018 None Full Exam - ENT Ears/Nose/Throat otoscopic exam Left tympanic membrane: erythematous 05/13/2018 None Full Exam - General 1994 Psychiatric orientation/consciousness Overall: oriented to person, place and time 12/19/2017 None Full Exam - General 1994 Psychiatric mood and affect Mood: happy 12/19/2017 None Full Exam - General 1994 Psychiatric mood and affect Overall: normal mood and affect 12/19/2017 None Full Exam - General 1994 Integument inspection of skin Overall: no rash, lesions 12/19/2017 None Full Exam - General 1994 Musculoskeletal head and neck Head: deformity of skull 12/19/2017 scar across top of head f rom right to left holiness Full Exam - General 1994 Musculoskeletal head and neck Cervical Spine: tender 12/19/2017 along upper neck/back mus cles multiple tender sites Full Exam - General 1994 Lymphatic neck nodes Overall: anterior cervical chain benign 12/19/2017 None Full Exam - General 1994 Lymphatic neck nodes Overall: posterior cervical chain benign 12/19/2017 None Full Exam - General 1994 Abdomen abdominal exam Overall: no tenderness 12/19/2017 None Full Exam - General 1994 Abdomen abdominal exam Overall: normal bowel sounds 12/19/2017 None Full Exam - General 1994 Abdomen liver and spleen exam Overall: no hepatosplenomegaly 12/19/2017 None Full Exam - General 1994 Abdomen liver and spleen exam Overall: no stigmata of chronic liver disease 12/19/2017 None Full Exam - General 1994 Cardiovascular auscultation of heart Overall: regular rate 12/19/2017 None Full Exam - General 1994 Cardiovascular auscultation of heart Overall: normal heart sounds 12/19/2017 None Full Exam - General 1994 Cardiovascular auscultation of heart Overall: no murmurs 12/19/2017 None Full Exam - General 1994 Respiratory respiratory effort/rhythm Overall: normal rate 12/19/2017 None Full Exam - General 1994 Respiratory respiratory effort/rhythm Overall: no retractions 12/19/2017 None Full Exam - General 1994 Respiratory auscultation Overall: breath sounds clear bilaterally 12/19/2017 None Full Exam - General 1994 Respiratory palpation of chest Chest wall pain: pain to light pressure 12/19/2017 across sternum of chest worse on left than right Full Exam - General 1994 Constitutional general appearance Overall: well nourished 12/19/2017 None Full Exam - General 1994 Constitutional general appearance Overall: well developed 12/19/2017 None Full Exam - General 1994 Constitutional general appearance Overall: in no acute distress 12/19/2017 None Full Exam - Orthopedics Constitutional general appearance Overall: well nourished 09/13/2017 None Full Exam - Orthopedics Constitutional general appearance Overall: well developed 09/13/2017 None Full Exam - Orthopedics Constitutional general appearance Overall: in no acute distress 09/13/2017 None Full Exam - Orthopedics Eyes conjunctiva/eyelids Overall: conjunctiva clear 09/13/2017 None Full Exam - Orthopedics Eyes conjunctiva/eyelids Overall: eyelids normal 09/13/2017 None Full Exam - Orthopedics Ears/Nose/Throat lips/teeth/gingiva Overall: benign lips 09/13/2017 None Full Exam - Orthopedics Ears/Nose/Throat oral cavity/pharynx/larynx Overall: oral mucosa clear 09/13/2017 None Full Exam - Orthopedics Respiratory respiratory effort/rhythm Overall: no retractions 09/13/2017 None Full Exam - Orthopedics Respiratory respiratory effort/rhythm Overall: normal rate 09/13/2017 None Full Exam - Orthopedics Psychiatric orientation/consciousness Overall: oriented to person, place and time 09/13/2017 None Full Exam - Orthopedics Psychiatric mood and affect Overall: normal mood and affect 09/13/2017 None Full Exam - Orthopedics Psychiatric appearance Overall: well-groomed, good eye contact 09/13/2017 None Full Exam - Orthopedics MS: head/neck insp & palp - H/N Overall: head atraumatic 09/13/2017 None Full Exam - Orthopedics MS: head/neck insp & palp - H/N Cervical spine palpation: tender greater occipital nerves 09/13/2017 None Full Exam - Orthopedics MS: head/neck insp & palp - H/N Cervical spine palpation: tender spinous processes 09/13/2017 None Full Exam - Orthopedics MS: head/neck insp & palp - H/N Cervical spine palpation: tender facet joints 09/13/2017 None Full Exam - Orthopedics MS: head/neck range of motion - H/N Flexion: painful cervical muscles with flexion 09/13/2017 None Full Exam - Orthopedics MS: head/neck range of motion - H/N Extension: painful cervical muscles with extension 09/13/2017 None Full Exam - Orthopedics MS: head/neck range of motion - H/N Left lateral rotation: painful cervical muscles with left lateral rotation 09/13/2017 None Full Exam - Orthopedics MS: head/neck range of motion - H/N Right lateral rotation: painful cervical muscles with right lateral rotation 09/13/2017 None Full Exam - Orthopedics MS: head/neck range of motion - H/N Right lateral rotation: pain radiating to the thoracic region 09/13/2017 None Full Exam - ENT Constitutional general appearance Overall: well nourished 10/23/2016 None Full Exam - ENT Constitutional general appearance Overall: well developed 10/23/2016 None Full Exam - ENT Constitutional general appearance Overall: in no acute distress 10/23/2016 None Full Exam - ENT Ears/Nose/Throat otoscopic exam Overall: external auditory canals normal 10/23/2016 None Full Exam - ENT Ears/Nose/Throat otoscopic exam Overall: tympanic membranes normal 10/23/2016 None Full Exam - ENT Ears/Nose/Throat oropharynx Overall: oral mucosa clear 10/23/2016 None Full Exam - ENT Face and Head palpation Left maxillary sinus: tender 10/23/2016 None Full Exam - ENT Face and Head palpation Right maxillary sinus: tender 10/23/2016 None Full Exam - ENT Respiratory inspection Overall: no retractions 10/23/2016 None Full Exam - ENT Respiratory inspection Overall: normal rate None Full Exam - ENT Respiratory auscultation Overall: breath sounds clear bilater ally 10/23/2016 None Full Exam - ENT Cardiovascular auscultation of heart Overall: regular rate 10/23/2016 None Full Exam - ENT Cardiovascular auscultation of heart Overall: normal heart sounds 10/23/2016 None Full Exam - ENT Lymphatic palpation of lymph nodes Overall: anterior cervical chain benign 10/23/2016 None Full Exam - ENT Lymphatic palpation of lymph nodes Overall: posterior cervical chain benign 10/23/2016 None Full Exam - ENT Neurologic orientation Overall: oriented to person, place a nd time 10/23/2016 None Full Exam - General 1994 Constitutional general appearance Development: appears stated age 0106/27/2016 None Full Exam - General 1994 Constitutional general appearance Development: well developed 06/27/2016 None Full Exam - General 1994 Constitutional general appearance Hygiene/Attention to Grooming: good hygiene 06/27/2016 None Full Exam - General 1994 Eyes conjunctiva/eyelids Overall: conjunctiva clear 06/27/2016 None Full Exam - General 1994 Eyes conjunctiva/eyelids Overall: cornea clear 06/27/2016 None Full Exam - General 1994 Eyes conjunctiva/eyelids Overall: eyelids normal 06/27/2016 None Full Exam - General 1994 Eyes pupils and irises Overall: pupils equal, round, reactive to light and accomodation 06/27/2016 None Full Exam - General 1994 Ears/Nose/Throat otoscopic exam Overall: external auditory canals clear 06/27/2016 None Full Exam - General 1994 Ears/Nose/Throat otoscopic exam Overall: tympanic membranes clear 06/27/2016 None Full Exam - General 1994 Ears/Nose/Throat lips/teeth/gingiva Overall: benign lips 06/27/2016 None Full Exam - General 1994 Ears/Nose/Throat lips/teeth/gingiva Overall: normal dentition 06/27/2016 None Full Exam - General 1994 Ears/Nose/Throat oral cavity/pharynx/larynx Overall: hypopharynx benign 06/27/2016 None Full Exam - General 1994 Ears/Nose/Throat oral cavity/pharynx/larynx Overall: no masses 06/27/2016 None Full Exam - General 1994 Ears/Nose/Throat oral cavity/pharynx/larynx Overall: oral mucosa clear 06/27/2016 None Full Exam - General 1994 Ears/Nose/Throat oral cavity/pharynx/larynx Overall: oropharyngeal mucosa clear 06/27/2016 None Full Exam - General 1994 Respiratory auscultation Overall: breath sounds clear bilaterally 06/27/2016 None Full Exam - General 1994 Respiratory respiratory effort/rhythm Overall: no retractions 06/27/2016 None Full Exam - General 1994 Respiratory respiratory effort/rhythm Overall: normal rate 06/27/2016 None Full Exam - General 1994 Cardiovascular extremities Overall: no clubbing 06/27/2016 None Full Exam - General 1994 Cardiovascular auscultation of heart Overall: normal heart sounds 06/27/2016 None Full Exam - General 1994 Cardiovascular auscultation of heart Overall: regular rate 06/27/2016 None Full Exam - General 1994 Abdomen abdominal exam Overall: no tenderness 06/27/2016 None Full Exam - General 1994 Abdomen abdominal exam Overall: normal bowel sounds 06/27/2016 None Full Exam - General 1994 Neurologic deep tendon reflexes Overall: deep tendon reflexes intact 06/27/2016 None Full Exam - General 1994 Neurologic cranial nerves Overall: crainial nerves 2 - 12 grossly intact 06/27/2016 None Full Exam - General 1994 Psychiatric orientation/consciousness Overall: oriented to person, place and time 06/27/2016 None Full Exam - General 1994 Psychiatric mood and affect Overall: normal mood and affect 06/27/2016 None Full Exam - General 1994 Integument inspection of skin Location: scalp 06/27/2016 multiple scars across hea d Full Exam - ENT Constitutional general appearance Overall: well nourished 04/07/2016 None Full Exam - ENT Constitutional general appearance Overall: well developed 04/07/2016 None Full Exam - ENT Constitutional general appearance Overall: in no acute distress 04/07/2016 None Full Exam - ENT Neurologic orientation Overall: oriented to person, place a nd time 04/07/2016 None Full Exam - ENT Lymphatic palpation of lymph nodes Overall: anterior cervical chain benign 04/07/2016 None Full Exam - ENT Lymphatic palpation of lymph nodes Overall: posterior cervical chain benign 04/07/2016 None Full Exam - ENT Cardiovascular auscultation of heart Overall: regular rate 04/07/2016 None Full Exam - ENT Cardiovascular auscultation of heart Overall: normal heart sounds 04/07/2016 None Full Exam - ENT Respiratory inspection Overall: no retractions 04/07/2016 None Full Exam - ENT Respiratory inspection Overall: normal rate None Full Exam - ENT Respiratory auscultation Overall: breath sounds clear bilater ally 04/07/2016 None Full Exam - ENT Face and Head palpation Left maxillary sinus: tender 04/07/2016 None Full Exam - ENT Face and Head palpation Right maxillary sinus: tender 04/07/2016 None Full Exam - ENT Ears/Nose/Throat otoscopic exam Overall: external auditory canals normal 04/07/2016 None Full Exam - ENT Ears/Nose/Throat otoscopic exam Overall: tympanic membranes normal 04/07/2016 None Full Exam - ENT Ears/Nose/Throat oropharynx Overall: oral mucosa clear 04/07/2016 None Full Exam - General 1994 Constitutional general appearance Overall: well developed 02/11/2016 None Full Exam - General 1994 Constitutional general appearance Overall: in no acute distress 02/11/2016 None Full Exam - General 1994 Constitutional general appearance Overall: well nourished 02/11/2016 None Full Exam - General 1994 Eyes conjunctiva/eyelids Overall: conjunctiva clear 02/11/2016 None Full Exam - General 1994 Ears/Nose/Throat otoscopic exam Overall: external auditory canals clear 02/11/2016 None Full Exam - General 1994 Ears/Nose/Throat otoscopic exam Tympanic membrane: air-fluid level 02/11/2016 None Full Exam - General 1994 Ears/Nose/Throat internal nose Drainage: clear 02/11/2016 None Full Exam - General 1994 Ears/Nose/Throat internal nose Sinus tenderness: left maxillary 02/11/2016 None Full Exam - General 1994 Ears/Nose/Throat internal nose Sinus tenderness: right maxillary 02/11/2016 None Full Exam - General 1994 Ears/Nose/Throat lips/teeth/gingiva Overall: benign lips 02/11/2016 None Full Exam - General 1994 Ears/Nose/Throat oral cavity/pharynx/larynx Overall: oral mucosa clear 02/11/2016 None Full Exam - General 1994 Respiratory auscultation Overall: breath sounds clear bilaterally 02/11/2016 None Full Exam - General 1994 Respiratory respiratory effort/rhythm Overall: no retractions 02/11/2016 None Full Exam - General 1994 Respiratory respiratory effort/rhythm Overall: normal rate 02/11/2016 None Full Exam - General 1994 Cardiovascular extremities Overall: no clubbing 02/11/2016 None Full Exam - General 1994 Cardiovascular auscultation of heart Overall: regular rate 02/11/2016 None Full Exam - General 1994 Cardiovascular auscultation of heart Overall: normal heart sounds 02/11/2016 None Full Exam - General 1994 Lymphatic neck nodes Overall: anterior cervical chain benign 02/11/2016 None Full Exam - General 1994 Musculoskeletal spine, ribs and pelvis Overall: good posture 02/11/2016 None Full Exam - General 1994 Musculoskeletal gait and station Overall: normal gait 02/11/2016 None Full Exam - General 1994 Musculoskeletal gait and station Overall: normal station 02/11/2016 None Full Exam - General 1994 Integument inspection of skin Overall: no rash, lesions 02/11/2016 None Full Exam - General 1994 Neurologic gait Overall: no ataxia, no unsteadiness 02/11/2016 None Full Exam - General 1994 Neurologic cranial nerves Overall: crainial nerves 2 - 12 grossly intact 02/11/2016 None Full Exam - General 1994 Psychiatric orientation/consciousness Overall: oriented to person, place and time 02/11/2016 None Full Exam - General 1994 Psychiatric mood and affect Overall: normal mood and affect 02/11/2016 None Full Exam - General 1994 Psychiatric appearance Overall: well-groomed, good eye contact 02/11/2016 None Full Exam - General 1994 Ears/Nose/Throat oral cavity/pharynx/larynx Posterior Pharynx: clear post nasal drainage 02/11/2016 None Full Exam - General 1994 Lymphatic neck nodes Overall: posterior cervical chain benign 02/11/2016 None Full Exam - General 1994 Psychiatric speech Overall: normal quality, no aphasia 02/11/2016 None Full Exam - General 1994 Psychiatric speech Overall: normal quality, quantity, r ate 02/11/2016 None Full Exam - General 1994 Constitutional general appearance Development: well developed 12/02/2015 None Full Exam - General 1994 Constitutional general appearance Development: appears stated age 0612/02/2015 None Full Exam - General 1994 Integument inspection of skin Location: scalp 12/02/2015 scar acros scalp from ear to ear Full Exam - General 1994 Integument inspection of skin Location: neck 12/02/2015 skin tag on right neck Full Exam - General 1994 Integument inspection of skin Location: back 12/02/2015 four skin tags on back - right shoulder, left scapula, lower back on right and lower back on left - benign appearing skin tags Full Exam - General 1994 Integument inspection of skin Location: face 12/02/2015 right nasal bridge Full Exam - General 1994 Constitutional general appearance Overall: well developed 09/29/2015 None Full Exam - General 1994 Constitutional general appearance Overall: in no acute distress 09/29/2015 None Full Exam - General 1994 Constitutional general appearance Overall: well nourished 09/29/2015 None Full Exam - General 1994 Eyes conjunctiva/eyelids Overall: conjunctiva clear 09/29/2015 None Full Exam - General 1994 Ears/Nose/Throat otoscopic exam Overall: external auditory canals clear 09/29/2015 None Full Exam - General 1994 Ears/Nose/Throat otoscopic exam Tympanic membrane: air-fluid level 09/29/2015 None Full Exam - General 1994 Ears/Nose/Throat lips/teeth/gingiva Overall: benign lips 09/29/2015 None Full Exam - General 1994 Ears/Nose/Throat oral cavity/pharynx/larynx Overall: oral mucosa clear 09/29/2015 None Full Exam - General 1994 Ears/Nose/Throat internal nose Sinus tenderness: left maxillary 09/29/2015 None Full Exam - General 1994 Ears/Nose/Throat internal nose Sinus tenderness: right maxillary 09/29/2015 None Full Exam - General 1994 Ears/Nose/Throat internal nose Drainage: clear 09/29/2015 None Full Exam - General 1994 Respiratory auscultation Overall: breath sounds clear bilaterally 09/29/2015 None Full Exam - General 1994 Respiratory respiratory effort/rhythm Overall: no retractions 09/29/2015 None Full Exam - General 1994 Respiratory respiratory effort/rhythm Overall: normal rate 09/29/2015 None Full Exam - General 1994 Cardiovascular extremities Overall: no clubbing 09/29/2015 None Full Exam - General 1994 Cardiovascular auscultation of heart Overall: regular rate 09/29/2015 None Full Exam - General 1994 Cardiovascular auscultation of heart Overall: normal heart sounds 09/29/2015 None Full Exam - General 1994 Abdomen abdominal exam Overall: no tenderness 09/29/2015 None Full Exam - General 1994 Abdomen abdominal exam Overall: normal bowel sounds 09/29/2015 None Full Exam - General 1994 Lymphatic neck nodes Overall: posterior cervical chain benign 09/29/2015 None Full Exam - General 1994 Lymphatic neck nodes Overall: anterior cervical chain benign 09/29/2015 None Full Exam - General 1994 Musculoskeletal gait and station Overall: normal gait 09/29/2015 None Full Exam - General 1994 Musculoskeletal gait and station Overall: normal station 09/29/2015 None Full Exam - General 1994 Musculoskeletal spine, ribs and pelvis Overall: good posture 09/29/2015 None Full Exam - General 1994 Integument inspection of skin Overall: no rash, lesions 09/29/2015 None Full Exam - General 1994 Neurologic gait Overall: no ataxia, no unsteadiness 09/29/2015 None Full Exam - General 1994 Neurologic cranial nerves Overall: crainial nerves 2 - 12 grossly intact 09/29/2015 None Full Exam - General 1994 Psychiatric orientation/consciousness Overall: oriented to person, place and time 09/29/2015 None Full Exam - General 1994 Psychiatric mood and affect Overall: normal mood and affect 09/29/2015 None Full Exam - General 1994 Psychiatric appearance Overall: well-groomed, good eye contact 09/29/2015 None Procedures Procedure Codes Date TRIAMCINOLONE ACET I [place] NOS CPT-4: J3301 05/13/2018 THER/PROPH/DIAG INJ SC/IM CPT-4: 46542 05/13/2018 TRIAMCINOLONE ACET I [place] NOS CPT-4: J3301 04/07/2016 ROCEPHIN, PER 250 MG CPT-4: J0696 04/07/2016 Vital Signs Date Vital 07/01/2018 Blood Pressure 1: 124/80 Code: 8480-6 BMI: 24.4 Code: 96245-7 Heart Rate 1: 97 bpm Height: 5'10" SpO2: 97% Weight: 170 lbs 05/13/2018 Blood Pressure 1: 132/80 Code: 8480-6 BMI: 24.7 Code: 27974-0 Heart Rate 1: 100 bpm Height: 5'10" SpO2: 96% Temperature: 36.7 (C ) / 98.1 (F) Weight: 172 lbs 12/19/2017 Blood Pressure 1: 122/80 Code: 8480-6 BMI: 25.5 Code: 89458-8 Heart Rate 1: 88 bpm Height: 5'10" SpO2: 98% Weight: 178 lbs 09/13/2017 Blood Pressure 1: 122/74 Code: 8480-6 BMI: 25.5 Code: 31667-9 Heart Rate 1: 85 bpm Height: 5'10" SpO2: 97% Weight: 178 lbs 10/23/2016 Blood Pressure 1: 136/72 Code: 8480-6 BMI: 26.0 Code: 32186-1 Heart Rate 1: 105 bpm Height: 5'10" SpO2: 96% Temperature: 36.4 (C ) / 97.6 (F) Weight: 181 lbs 06/27/2016 Blood Pressure 1: 130/78 Code: 8480-6 BMI: 25.3 Code: 79706-3 Heart Rate 1: 75 bpm Height: 5'10" SpO2: 98% Weight: 176 lbs 04/07/2016 Blood Pressure 1: 140/80 Code: 8480-6 BMI: 25.5 Code: 71940-7 Heart Rate 1: 106 bpm Height: 5'10" SpO2: 95% Weight: 178 lbs 02/11/2016 Blood Pressure 1: 128/80 Code: 8480-6 BMI: 25.5 Code: 75052-0 Heart Rate 1: 88 bpm Height: 5'10" SpO2: 98% Weight: 178 lbs 12/02/2015 Blood Pressure 1: 128/80 Code: 8480-6 BMI: 26.0 Code: 78135-0 Heart Rate 1: 70 bpm Height: 5'10" SpO2: 98% Weight: 181 lbs 8 oz 09/29/2015 Blood Pressure 1: 148/80 Code: 8480-6 BMI: 26.3 Code: 31964-8 Heart Rate 1: 82 bpm Height: 5'10" SpO2: 97% Weight: 183 lbs Functional Status No Functional Status data History of Present Illness Symptom Name Status Resu lt Effective Date Notes Quality intermittent 07/01/2018 None Onset of Symptom _ mon ths ago 07/01/2018 None Frequency of Episodes daily 07/01/2018 None Pertinent Findings Den ies dizziness 07/01/2018 None Quality intermittent 07/01/2018 None Onset and Resolution g radual in onset 07/01/2018 None Onset of Symptom Denie s 1 months ago 07/01/2018 None Pertinent Findings lig htheadedness 07/01/2018 None Pertinent Findings tac hycardia 07/01/2018 None Location on the right 07/01/2018 None Quality worsening 07/01/2018 None Quality popping 07/01/[address] 07/01/2018 None Onset of Symptom _ mon ths ago 07/01/2018 None Pertinent Findings Den ies decreased range of motion 07/01/2018 None Pertinent Findings josé n with movement 07/01/2018 None Pertinent Findings sen sation of buckling 07/01/2018 None Location frontal sinuses 05/13/2018 None Quality fullness 05/13/2018 None Quality pressure 05/13/2018 None Onset and Resolution s udden in onset 05/13/2018 None Onset of Symptom 3 day s ago 05/13/2018 None Frequency of Episodes daily 05/13/2018 None Location in the throat 05/13/2018 None Quality constant 05/13/2018 None Quality hacking 05/13/2018 None Quality productive 05/13/2018 None Onset and Resolution s udden in onset 05/13/2018 None Onset of Symptom 3 day s ago 05/13/2018 None Location both ears 05/13/2018 None Onset and Resolution s udden in onset 05/13/2018 None chest pain/pressure Location on the left side of on the chest 12/19/2017 None chest pain/pressure Radiating the right shoulder 12/19/2017 at times when the pain is more intense chest pain/pressure Radiating the left shoulder 12/19/2017 at times when the pain is more intense chest pain/pressure Quality acute 12/19/2017 None chest pain/pressure Quality intermittent 12/19/2017 None chest pain/pressure Onset and Resolution sudden in onset 12/19/2017 None chest pain/pressure Onset of Symptom 6 days ago 12/19/2017 None chest pain/pressure Frequency of Episodes daily 12/19/2017 None chest pain/pressure Triggers no known associated factors 12/19/2017 None dizziness Quality acute 12/19/2017 None dizziness Quality interm ittent 12/19/2017 None dizziness Onset and Resolution ongoing 12/19/2017 None dizziness Triggers exert ion 12/19/2017 None dizziness Triggers activ ity 12/19/2017 None dizziness Triggers exerc ise 12/19/2017 None dizziness Pertinent Findings nausea 12/19/2017 None neck pain Location in th e central area 09/13/2017 None neck pain Quality consta nt 09/13/2017 None neck pain Quality numbne ss 09/13/2017 None neck pain Quality sharp 09/13/2017 None neck pain Onset and Resolution sudden in onset 09/13/2017 None neck pain Onset of Symptom 4 days ago 09/13/2017 None neck pain Frequency of Episodes daily 09/13/2017 None sinus congestion Onset and Resolution sudden in onset 10/23/2016 None sinus congestion Onset of Symptom 2 days ago 10/23/2016 None sinus congestion Quality acute 10/23/2016 None sinus congestion Location on both sides 10/23/2016 None sinus congestion Pertinent Findings cough 10/23/2016 None sinus congestion Pertinent Findings decreased energy level 10/23/2016 None sinus congestion Pertinent Findings Denies fever 10/23/2016 None sinus congestion Pertinent Findings Denies hoarseness 10/23/2016 None sinus congestion Severity moderate 10/23/2016 None sinus congestion Significant Medical Conditions allergic rhinitis 10/23/2016 None sinus congestion Significant Medications decongestants 10/23/2016 None sinus congestion Triggers allergens 10/23/2016 None headache Location diffus liz 06/27/2016 None headache Quality sharp 06/27/2016 None headache Onset and Resolution gradual in onset 06/27/2016 None headache Onset of Symptom 3 months ago 06/27/2016 None headache Frequency of Episodes daily 06/27/2016 None headache Pertinent Findings blurred vision 06/27/2016 None headache Pertinent Findings nausea 06/27/2016 None memory loss Onset and Resolution sudden in onset 06/27/2016 None memory loss Onset of Symptom 3 months ago 06/27/2016 None memory loss Limitation on Activities moderately limits activities 06/27/2016 None cough Location in the th roat 04/07/2016 None cough Quality productive 04/07/2016 None cough Onset and Resolution sudden in onset 04/07/2016 None cough Onset of Symptom 2 days ago 04/07/2016 None cough Pertinent Findings Denies chest discomfort 04/07/2016 None cough Pertinent Findings Denies dyspnea 04/07/2016 None cough Pertinent Findings Denies fever 04/07/2016 None sinus congestion Onset and Resolution sudden in onset 04/07/2016 None sinus congestion Onset of Symptom 1 weeks ago 04/07/2016 None sinus congestion Frequency of Episodes daily 04/07/2016 None sinus congestion Pertinent Findings cough 04/07/2016 None sinus congestion Pertinent Findings Denies decreased energy level 04/07/2016 None sinus congestion Pertinent Findings Denies fever 04/07/2016 None sinus congestion Onset and Resolution sudden in onset 02/11/2016 None sinus congestion Onset of Symptom 3 days ago 02/11/2016 None sinus congestion Frequency of Episodes daily 02/11/2016 None sinus congestion Timing of Episodes all day long 02/11/2016 None sinus congestion Triggers no known associated factors 02/11/2016 None sinus congestion Pertinent Findings cough 02/11/2016 None sinus congestion Pertinent Findings fever 02/11/2016 None sinus congestion Pertinent Findings hoarseness 02/11/2016 None earache Location both ea rs 02/11/2016 None earache Onset and Resolution sudden in onset 02/11/2016 None earache Onset of Symptom 3 days ago 02/11/2016 None earache Frequency of Episodes daily 02/11/2016 None sore throat Location dif fusely 02/11/2016 None sore throat Quality dull 02/11/2016 None sore throat Quality cons tant 02/11/2016 None sore throat Quality scra tchy 02/11/2016 None sore throat Onset and Resolution sudden in onset 02/11/2016 None sore throat Onset of Symptom 3 days ago 02/11/2016 None mole check Location-Major in a generalized area 12/02/2015 None mole check Location-Major on the upper body 12/02/2015 None mole check Location-Major on the head 12/02/2015 None mole check Location-Major on the neck 12/02/2015 None mole check Location-Head/Neck on the scalp 12/02/2015 None mole check Location-Trunk on the upper back 12/02/2015 None mole check Color flesh-c olored 12/02/2015 None mole check Number of Moles >10 moles 12/02/2015 None mole check Changing Moles changing 12/02/2015 None cough Location in the th roat 09/29/2015 None cough Quality constant 09/29/2015 None cough Quality productive 09/29/2015 None cough Onset and Resolution sudden in onset 09/29/2015 None cough Onset of Symptom 4 days ago 09/29/2015 None cough Limitation on Activities does not limit activities 09/29/2015 None cough Frequency of Episodes daily 09/29/2015 None cough Pertinent Findings chest discomfort 09/29/2015 None cough Pertinent Findings fever 09/29/2015 None cough Pertinent Findings hoarseness 09/29/2015 None cough Pertinent Findings nasal congestion 09/29/2015 None sinus congestion Onset and Resolution sudden in onset 09/29/2015 None sinus congestion Onset of Symptom 4 days ago 09/29/2015 None sinus congestion Pertinent Findings cough 09/29/2015 None sinus congestion Pertinent Findings fever 09/29/2015 None sinus congestion Pertinent Findings hoarseness 09/29/2015 None sinus congestion Quality fullness 09/29/2015 None sinus congestion Quality pain 09/29/2015 None fever Quality intermitte nt 09/29/2015 None fever Onset and Resolution sudden in onset 09/29/2015 None fever Onset of Symptom 2 days ago 09/29/2015 None fever Temperature 100 de grees 09/29/2015 None fever Frequency of Episodes daily 09/29/2015 None Advance Directives No Advance Directive data Encounters Encounter Performer Loca tion Codes Date ([id number]) [id number] EST. P ATIENT, LEVEL IV Diagnosis: Palpitations[ICD10: R00.2] Diagnosis: Pain in right knee[ICD10: M25.561] Diagnosis: Other insomnia[ICD10: G47.09] Melonie Samuels MD, [facility] CPT- 4: 81953 07/01/2018 27929 EST. PATIENT, LEVEL IV Diagnosis: Other acute sinusitis[ICD10: J01.80] Diagnosis: Other allergic rhinitis[ICD10: J30.89] Madhuri Samuels MD, [facility] CPT-4: 73407 05/13/2018 ([id number]) 21179 EST. P ATIENT, LEVEL IV Diagnosis: Chondrocostal junction syndrome [Tietze][ICD10: M94.0] Diagnosis: Dizziness and giddiness[ICD10: R42] Diagnosis: Other allergic and dietetic gastroenteritis and colitis[ICD10: K52.29] [facility] CPT-4: 63018 12/19/2017 14801 EST. PATIENT, LEVEL III Diagnosis: Cervicalgia[ICD10: M54.2] Diagnosis: Muscle spasm of back[ICD10: M62.830] Madhuri Samuels MD, [facility] CPT- 4: 73209 09/13/2017 ([id number]) 82895 EST. P ATIENT, LEVEL III Diagnosis: Acute recurrent maxillary sinusitis[ICD10: J01.01] Diagnosis: Cough[ICD10: R05] Melonie Samuels MD, [facility] CPT-4: 30143 10/23/2016 ([id number]) 67414 EST. P ATIENT, LEVEL IV Diagnosis: Headache[ICD10: R51] Diagnosis: Other headache syndrome[ICD10: G44.89] Diagnosis: Retrograde amnesia[ICD10: R41.2] Sherrie Samuels MD, [facility] CPT-4: 88989 06/27/2016 ([id number]) 97476 EST. P ATIENT, LEVEL III Diagnosis: Cough[ICD10: R05] Diagnosis: Acute recurrent maxillary sinusitis[ICD10: J01.01] Melonie Samuels MD, [facility] CPT-4: 16405 04/07/2016 38797 EST. PATIENT, LEVEL IV Diagnosis: Other acute sinusitis[ICD10: J01.80] Madhuri Samuels MD, [facility] CPT- 4: 85976 02/11/2016 ([id number]) 38278 EST. P ATIENT, LEVEL II Diagnosis: Other hypertrophic disorders of the skin[ICD10: L91.8] Sherrie Samuels MD, [facility] CPT-4: 32428 12/02/2015 ([id number]) [facility] - LEVEL 4 Diagnosis: Other acute sinusitis[ICD10: J01.80] Diagnosis: Acute upper respiratory infection, unspecified[ICD10: J06.9] Madhuri Samuels MD, [facility] CPT-4: 87260 09/29/2015 Plan of Care Planned Activity Notes C odes Status Date Visit Plan: Palpitations -schedule holter monitor -monitor symptoms Right knee pain -recommend rest, ice and anti inflammatories as directed -call if symptoms do not resolve or if any worse Insomnia - Pt has been advised to increase the light in the house during the day, and start dimming the lights during the evening hours. Pt has been advised to cut out caffeine after 5pm. Daytime napping worsens night time insomnia. 07/01/2018 Appointment: Melonie Chacko WPtel: [address] [place], [place] [phone] (15 min) Moderate 07/01/2018 Patient Education: Patient Medication Summary Completed 07/01/2018 Visit Plan: Sinusitis - Pt has acut e infection - pain in face, maxillary region, Pt informed to use decongestant, RX given to patient, sinus rinses also recommended. Call if symptoms do not show improvement. Allerg ies - chronic - recommended pt to use allergy medication as prescribed. Pt has been counseled as to the appropriate use of the medication. Pt to call if allergy symptoms are not controlled with the medication. If using nasal spray, instructions as follows: Nasal spray- use twice daily, one spray per nostril twice daily, after 30 minutes, rinse out nose with saline spray.. Use opposite hand per nostril to spray in the nasal steroid allergy spray. 05/13/2018 Visit Plan: Sinusitis - Pt has acut e infection - pain in face, maxillary region, Pt informed to use decongestant, RX given to patient, sinus rinses also recommended. Call if symptoms do not show improvement. Allerg ies - chronic - recommended pt to use allergy medication as prescribed. Pt has been counseled as to the appropriate use of the medication. Pt to call if allergy symptoms are not controlled with the medication. If using nasal spray, instructions as follows: Nasal spray- use twice daily, one spray per nostril twice daily, after 30 minutes, rinse out nose with saline spray.. Use opposite hand per nostril to spray in the nasal steroid allergy spray. 05/13/2018 Appointment: Madhuri Villegas WPtel: [facility] [place] [place] (15 min) Moderate 05/13/2018 Patient Education: Patient Medication Summary Completed 05/13/2018 Appointment: Melonie Chacko WPtel: [facility] [phone] [place] (15 min) Moderate 03/07/2018 Visit Plan: Costochondritis - pt to use anti-inflammatories as directed.. Pt is to call if the chest pain does not improve. - Avoid push- ups, upper body exercises for the next several weeks - sample of meloxicam 10mg x 4 doses given to the patient. Dizziness - recommended patient to cut his propranolol to 5mg daily. GI upset - diarrhea - recommended patient to use high dose probiotics to be used at least twice daily until GI symptoms improve. 12/19/2017 Appointment: Sherrie Samuels WPtel: [facility] (15 min) Moderate 12/19/2017 Patient Education: Patient Medication Summary Completed 12/19/2017 Referral: Vaibhav Miller Referral Initiated 09/14/2017 Visit Plan: Neck Pain- pt to start with aspercreme or biofreeze to neck three times daily and start neck exercises daily. Will send RX, will refer to Ortho - pt is to notify clinic if symptoms do not improve, if they worsen, or with any changes, questions, or concerns. 09/13/2017 Appointment: Madhuri Villegas WPtel: [facility] (15 min) Moderate 09/13/2017 Patient Education: Patient Medication Summary Completed 09/13/2017 Care Plan: Referral Order SNOMED-CT : [id number] Pending 09/13/2017 Visit Plan: Sinusitis - Pt has acut e infection - pain in face, maxillary region, Pt informed to use decongestant, RX given to patient, sinus rinses also recommended. Call if symptoms do not show improvement. 10/23/2016 Appointment: Melonie Chacko WPtel: [facility] [phone] (30 min) Complex 10/23/2016 Patient Education: Patient Medication Summary Completed 10/23/2016 Patient Education: Obesity Completed 10/23/2016 Visit Plan: Headache, vision change s and memory loss - recommended pt to have MRI due to vision changes and memory loss. Pt has history of trauma after accident during deployment to [place]. we will have to do a pa on the MRI - recommended ESR, CRP as well to assure pt does not have temporal arteritis. 06/27/2016 Appointment: [id number] [facility] (15 min) Moderate 06/27/2016 Patient Education: Patient Medication Summary Completed 06/27/2016 Patient Education: Obesity Completed 06/27/2016 Care Plan: MRI BRAIN STEM W/O DYE Pending 06/27/2016 Visit Plan: Sinusitis - Pt has acut e infection - pain in face, maxillary region, Pt informed to use decongestant, RX given to patient, sinus rinses also recommended. Call if symptoms do not show improvement. 04/07/2016 Appointment: Melonie Chacko WPtel: [phone] (30 min) Complex 04/07/2016 Patient Education: Patient Medication Summary Completed 04/07/2016 Patient Education: Obesity Completed 04/07/2016 Visit Plan: Sinusitis - Pt has acut e infection - pain in face, maxillary region, Pt informed to use decongestant, RX given to patient, sinus rinses also recommended. Call if symptoms do not show improvement. 02/11/2016 Appointment: Melonie Chacko WPtel: [phone] (15 min) Moderate 02/11/2016 Patient Education: Patient Medication Summary Completed 02/11/2016 Patient Education: Obesity Completed 02/11/2016 Visit Plan: Skin tags - appear donna gn - no removal necessary at this time - if changes occur then would consider removal. skin tag on right nasal bridge - no removal - watchful waiting. 12/02/2015 Appointment: Sherrie Samuels WPtel: [facility] [address] (15 min) Moderate 12/02/2015 Patient Education: Patient Medication Summary Completed 12/02/2015 Patient Education: Obesity Completed 12/02/2015 Visit Plan: URI - Pt advised to inc rease fluids, vitamin C. Discussed natural and expected course of this diagnosis and need to alert me if symptoms do not follow expected course, or if any worse. RX sent to patient's pharmacy. Sinusitis - Pt has acute infection - pain in face, maxillary region, Pt informed to use decongestant, RX given to patient, sinus rinses also recommended. Call if symptoms do not show improvement. 09/29/2015 Appointment: Melonie Chacko WPtel: [phone] New Patient 09/29/2015 Patient Education: Patient Medication Summary Completed 09/29/2015 Patient Education: Obesity Completed 09/29/2015 Appointment: New Patient 01/28/2015 Referral: Vaibhav Miller Referral Initiated Instructions Comment . Skin tags - appear benign - no removal necessary at this time - if changes occur then would consider removal. skin tag on right nasal bridge - no removal - watchful waiting. . URI - Pt advised t o increase fluids, vitamin C. Discussed natural and expected course of this diagnosis and need to alert me if symptoms do not follow expected course, or if any worse. RX sent to patient's pharmacy. Sinusitis - Pt has acute infection - pain in face, maxillary region, Pt informed to use decongestant, RX given to patient, sinus rinses also recommended. Call if symptoms do not show improvement. 48 HOLTER MONITOR -W E WILL SCHEDULE AND LET YOU KNOW ALEVE 2 PILLS TWICE X 1 WEEK XRAY RIGHT KNEE IF PAIN DOES NOT RESOLVE CUT BACK ON CAFFEINE AND ELECTRONICS BEFORE BED . Palpitations -schedule holter monitor -monitor symptoms Right knee pain -recommend rest, ice and anti inflammatories as directed -call if symptoms do not resolve or if any worse Insomnia - Pt has been advised to increase the light in the house during the day, and start dimming the lights during the evening hours. Pt has been advised to cut out caffeine after 5pm. Daytime napping worsens night time insomnia. . Sinusitis - Pt has acute infection - pain in face, maxillary region, Pt informed to use decongestant, RX given to patient, sinus rinses also recommended. Call if symptoms do not show improvement. ROCEPHIN AND KENALOG ZPACK-START TODAY FLONASE FOR SINUS CONGESTION CALL SUNDAY IF NOT BETTER . Sinusitis - Pt has acute infection - p ain in face, maxillary region, Pt informed to use decongestant, RX given to patient, sinus rinses also recommended. Call if symptoms do not show improvement. . Sinusitis - Pt has acute infection - pain in face, maxillary region, Pt informed to use decongestant, RX given to patient, sinus rinses also recommended. Call if symptoms do not show improvement. Allergies - chronic - recommended pt to use allergy medication as prescribed. Pt has been counseled as to the appropriate use of the medication. Pt to call if allergy symptoms are not controlled with the medication. If using nasal spray, instructions as follows: Nasal spray- use twice daily, one spray per nostril twice daily, after 30 minutes, rinse out nose with saline spray.. Use opposite hand per nostril to spray in the nasal steroid allergy spray. . Sinusitis - Pt has acute infection - pain in face, maxillary region, Pt informed to use decongestant, RX given to patient, sinus rinses also recommended. Call if symptoms do not show improvement. Allergies - chronic - recommended pt to use allergy medication as prescribed. Pt has been counseled as to the appropriate use of the medication. Pt to call if allergy symptoms are not controlled with the medication. If using nasal spray, instructions as follows: Nasal spray- use twice daily, one spray per nostril twice daily, after 30 minutes, rinse out nose with saline spray.. Use opposite hand per nostril to spray in the nasal steroid allergy spray. . Sinusitis - Pt has acute infection - pain in face, maxillary region, Pt informed to use decongestant, RX given to patient, sinus rinses also recommended. Call if symptoms do not show improvement. . Neck Pain- pt to s tart with aspercreme or biofreeze to neck three times daily and start neck exercises daily. Will send RX, will refer to Ortho - pt is to notify clinic if symptoms do not improve, if they worsen, or with any changes, questions, or concerns. . Headache, vision c hanges and memory loss - recommended pt to have MRI due to vision changes and memory loss. Pt has history of trauma after accident during deployment to [place]. we will have to do a pa on the MRI - recommended ESR, CRP as well to assure pt does not have temporal arteritis. high dose probiotic to have you start taking at least one time daily.. Costochondritis - pt to use anti-inflammatories as directed.. Pt is to call if the chest pain does not improve. - Avoid push-ups, upper body exercises for the next several weeks - sample of meloxicam 10mg x 4 doses given to the patient. Dizziness - recommended patient to cut his propranolol to 5mg daily. GI upset - diarrhea - recommended patient to use high dose probiotics to be used at least twice daily until GI symptoms improve.
--- OUTSIDE RECORDS SUMMARY | 2020-01-08 10:21 | XMS REPORT | CCD ---
Author Author Malvin Villegas Organization [facility] Address [address] [place] [address] Phone Care Team Providers Care Grievance Manager Name Role Phone PP Unavailable CCM Unavailable Summary Purpose Interface Exchange Insurance Providers Payer name Policy type / Coverage type Covered republican ID Effective Begin Date Effective End Date MARYANNE BULL (2012 THRU) Emma [id number] Unknown Unknown Family history Father Diagnosis Age At Onset Cardiomyopathy Unknown Social History Social History Element Codes Description Effective Dates Marital status Unknown M kenya Griffith 12/19/2017 Number of children Unknown 3 09/29/[address]: 799748558 Never smoker 09/29/2015 Alcohol history Unknown occasionally [...] Date Stop Date Sta tus Fill Instructions Augmentin 875 mg-125 mg tablet RxNorm: 240614 1 Tablet(s) PO BID 05/13/2018 05/19/2018 Inactive Kenalog 40 mg/mL chacha pension for injection RxNorm: 6496073 1 Milliliter(s) Inj 05/13/2018 05/13/2018 In active propranolol 10 mg ta blet RxNorm: 859730 1/2 Tablet(s) daily 12/19/2017 12/21/2018 Active 11/19/2017 11:27:19 AM propranolol 10 mg ta blet RxNorm: 660592 TAKE 1 TABLET BY MOUT H TWICE DAILY 11/20/2017 12/18/2017 In active 11/19/2017 11:27:19 AM cyclobenzaprine 5 mg tablet RxNorm: 078044 1-2 Tablet(s) PO TID as needed 09/13/2017 09/17/2017 In active Zorvolex 18 mg capsule RxNorm: 5537056 1 Capsule(s) PO TID 09/13/2017 12/18/2017 Inactive propranolol 10 mg ta blet RxNorm: 962772 1 Tablet(s) PO BID 06/07/2017 09/04/2017 Inactive prednisone 20 mg tablet RxNorm: 187018 2 Tablet(s) PO daily 10/23/2016 10/27/2016 Inactive Augmentin 875 mg-125 mg tablet RxNorm: 212923 1 Tablet(s) PO BID 10/23/2016 10/29/2016 Inactive propranolol 10 mg ta blet RxNorm: 534800 1 Tablet(s) PO BID 06/29/2016 09/26/2016 Inactive Fish Oil 360 mg-1,20 0 mg capsule RxNorm: 688856 1 Capsule(s) PO BID 06/29/2016 12/18/2017 Inactive propranolol 10 mg ta blet RxNorm: 616591 1 Tablet(s) PO BID 06/27/2016 06/28/2016 Inactive ceftriaxone 500 mg s olution for injection RxNorm: 4084492 Inj 04/07/2016 04/07/2016 Inactive Kenalog 40 mg/mL chacha pension for injection RxNorm: 5462651 Milliliter(s) Inj 04/07/2016 04/07/2016 In active Zithromax Z-Devon 250 mg tablet RxNorm: 890163 1 Tablet(s) PO UD 04/07/2016 04/11/2016 Inactive zpack Augmentin 875 mg-125 mg tablet RxNorm: 625911 1 Tablet(s) PO BID 02/11/2016 02/20/2016 Inactive Zithromax Z-Devon 250 mg tablet RxNorm: 996358 Tablet(s) PO UD 09/29/2015 12/01/2015 Inactive Sudafed 24 Hour oral RxNorm: 02672 oral No Start Date Active Fish Oil 360 mg-1,20 0 mg capsule RxNorm: 402589 1 Capsule(s) PO BID No Start Date 06/28/2016 Inactive Medication Administered Medication Codes Instruc tions Start Date Status Kenalog 40 mg/mL suspension for injection RxNorm: 5002971 1Milliliter 05/13/2018 N o longer Active Kenalog 40 mg/mL suspension for injection RxNorm: 9903524 Milliliter 04/07/2016 No longer Active ceftriaxone 500 mg solution for injection RxNorm: 1980124 04/07/2016 No longer A ctive Immunizations Vaccine Codes Date Status Influenza CVX: [...] of back ICD-10: M62.830 ICD-9: 724.8 09/13/2017 Cough ICD-10: R05 ICD-9: 786.2 10/23/2016 Acute recurrent maxillary sinusitis ICD-10: J01.01 ICD-9: 461.0 10/23/2016 Headache ICD-10: R51 ICD-9: 784.0 06/27/2016 [...] 42.7 % 06/28/2016 Cbc With Differential Ord2 MCV 85.2 fl 06/28/2016 Cbc With Differential Ord2 Lymph% 33.3 % 06/28/2016 Cbc With Differential Ord2 [place]% 12.8 % 06/28/2016 Cbc With Differential Ord2 MCH 30.5 pg 06/28/2016 Cbc With Differential Ord2 MCHC 35.8 pg 06/28/2016 Cbc With Differential Ord2 Eos% 3.1 % 06/28/2016 Cbc With Differential Ord2 PLT 211 K/ul 06/28/2016 Cbc With Differential Ord2 Baso% 1.0 % 06/28/2016 Cbc With Differential Ord2 Neut ABS# 2.60 K/ul 06/28/2016 Cbc With Differential Ord2 RDW 12.8 % 06/28/2016 Cbc With Differential Ord2 Lymph ABS# 1.74 K/ul 06/28/2016 Cbc With Differential Ord2 [place] ABS# 0.7 K/ul 06/28/2016 Cbc With Differential Ord2 Eos ABS# 0.2 K/ul 06/28/2016 Cbc With Differential Ord2 Baso ABS# 0.1 K/ul 06/28/2016 Comp Metabolic Sfx027 NA 140 mEq/L 06/28/2016 Comp Metabolic Xmr395 K 4.1 mEq/L 06/28/2016 Comp Metabolic Oip402 CL 104 mEq/L 06/28/2016 Comp Metabolic Ums771 CO2 28.0 mEq/L 06/28/2016 Comp Metabolic Pdc042 AN ION GAP 12 06/28/2016 Comp Metabolic Lhf824 GL UCOSE 93 mg/dL 06/28/2016 Comp Metabolic Zmf985 Cr eat 1.0 mg/dL 06/28/2016 Comp Metabolic Alz869 eG FR 97 ml/min/1.73m2 06/28 Comp Metabolic Pqb718 BUN 12 mg/dL 06/28/2016 Comp Metabolic Cog861 B/ C Ratio 12.6 Ratio 06/28/2016 Comp Metabolic Egz979 CA LCIUM 9.6 mg/dL 06/28/2016 Comp Metabolic Yzm712 AL K PHOS 73 U/L 06/28/2016 Comp Metabolic Vzg694 T(SGOT) 18 U/L 06/28/2016 Comp Metabolic Ypk976 AL T(SGPT) 31 U/L 06/28/2016 Comp Metabolic Uxa525 BI LI T 0.5 mg/dL 06/28/2016 Comp Metabolic Oms432 AL BUMIN 4.8 g/dL 06/28/2016 Comp Metabolic Jxl340 TP RO 6.9 g/dL 06/28/2016 Comp Metabolic Zwl081 GL OB 2.1 g/dL 06/28/2016 Comp Metabolic Vrq147 A/ G Ratio 2.2 Ratio 06/28/2016 Comp Metabolic Irf030 Os mo 279 mOsmo 06/28/2016 Tsh Ord6 [...] dentition 07/01/2018 None Full Exam - General 1994 [...] of head f rom right to left lutheran Full Exam - General 1994 Musculoskeletal head [...] CPT-4: J3301 05/13/2018 THER/PROPH/DIAG INJ SC/IM CPT-4: 24751 05/13/2018 TRIAMCINOLONE ACET I [place] NOS CPT-4: J3301 04/07/2016 ROCEPHIN, PER 250 MG CPT-4: J0696 04/07/2016 Vital Signs Date Vital 07/01/2018 Blood Pressure 1: 124/80 Code: 8480-6 BMI: 24.4 Code: 13468-4 Heart Rate 1: 97 bpm Height: 5'10" SpO2: 97% Weight: 170 lbs 05/13/2018 Blood Pressure 1: 132/80 Code: 8480-6 BMI: 24.7 Code: 51289-8 Heart Rate 1: 100 bpm Height: 5'10" SpO2: 96% Temperature: 36.7 (C ) / 98.1 (F) Weight: 172 lbs 12/19/2017 Blood Pressure 1: 122/80 Code: 8480-6 BMI: 25.5 Code: 11201-0 Heart Rate 1: 88 bpm Height: 5'10" SpO2: 98% Weight: 178 lbs 09/13/2017 Blood Pressure 1: 122/74 Code: 8480-6 BMI: 25.5 Code: 57351-2 Heart Rate 1: 85 bpm Height: 5'10" SpO2: 97% Weight: 178 lbs 10/23/2016 Blood Pressure 1: 136/72 Code: 8480-6 BMI: 26.0 Code: 22512-6 Heart Rate 1: 105 bpm Height: 5'10" SpO2: 96% Temperature: 36.4 (C ) / 97.6 (F) Weight: 181 lbs 06/27/2016 Blood Pressure 1: 130/78 Code: 8480-6 BMI: 25.3 Code: 18918-2 Heart Rate 1: 75 bpm Height: 5'10" SpO2: 98% Weight: 176 lbs 04/07/2016 Blood Pressure 1: 140/80 Code: 8480-6 BMI: 25.5 Code: 45286-6 Heart Rate 1: 106 bpm Height: 5'10" SpO2: 95% Weight: 178 lbs 02/11/2016 Blood Pressure 1: 128/80 Code: 8480-6 BMI: 25.5 Code: 99838-1 Heart Rate 1: 88 bpm Height: 5'10" SpO2: 98% Weight: 178 lbs 12/02/2015 Blood Pressure 1: 128/80 Code: 8480-6 BMI: 26.0 Code: 85120-3 Heart Rate 1: 70 bpm Height: 5'10" SpO2: 98% Weight: 181 lbs 8 oz 09/29/2015 Blood Pressure 1: 148/80 Code: 8480-6 BMI: 26.3 Code: 69179-2 Heart Rate 1: 82 bpm Height: 5'10" [...] Encounters Encounter Performer Loca tion Codes Date ([id number]) [id number] EST. P ATIENT, LEVEL IV Diagnosis: Palpitations[ICD10: R00.2] Diagnosis: Pain in right knee[ICD10: M25.561] Diagnosis: Other insomnia[ICD10: G47.09] Melonie Samuels MD, [facility] CPT- 4: 74049 07/01/2018 76916 EST. PATIENT, LEVEL IV Diagnosis: Other acute sinusitis[ICD10: J01.80] Diagnosis: Other allergic rhinitis[ICD10: J30.89] Madhuri Samuels MD, [facility] CPT-4: 44240 05/13/2018 ([id number]) 42416 EST. 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 PATIENT, LEVEL III Diagnosis: Cervicalgia[ICD10: M54.2] Diagnosis: Muscle spasm of back[ICD10: M62.830] Madhuri Samuels MD, [facility] CPT- 4: 19203 09/13/2017 ([id number]) 63174 EST. P ATIENT, LEVEL III Diagnosis: Acute recurrent maxillary sinusitis[ICD10: J01.01] Diagnosis: Cough[ICD10: R05] Melonie Samuels MD, [facility] CPT-4: 36973 10/23/2016 ([id number]) 18067 EST. P ATIENT, LEVEL IV Diagnosis: Headache[ICD10: R51] Diagnosis: Other headache syndrome[ICD10: G44.89] Diagnosis: Retrograde amnesia[ICD10: R41.2] [facility] MD, [facility] CPT-4: 03070 06/27/2016 ([id number]) 35145 EST. P ATIENT, LEVEL III Diagnosis: Cough[ICD10: R05] Diagnosis: Acute recurrent maxillary sinusitis[ICD10: J01.01] Melonie Samuels MD, [facility] CPT-4: 21338 04/07/2016 68537 EST. PATIENT, LEVEL IV Diagnosis: Other acute sinusitis[ICD10: J01.80] Madhuri Samuels MD, [facility] CPT- 4: 15949 02/11/2016 ([id number]) 22794 EST. P ATIENT, LEVEL II Diagnosis: Other hypertrophic disorders of the skin[ICD10: L91.8] [facility] MD, [facility] CPT-4: 70781 12/02/2015 ([id number]) OFFICE VISI T, NEW - LEVEL 4 Diagnosis: Other acute sinusitis[ICD10: J01.80] Diagnosis: Acute upper respiratory infection, unspecified[ICD10: J06.9] Madhuri Samuels MD, [facility] CPT-4: 74761 09/29/2015 Plan of Care Planned Activity Notes [...] time insomnia. 07/01/2018 Appointment: Melonie Chacko WPtel: [address] [place], [place] [phone] (15 min) Moderate 07/01/2018 Patient Education: Patient [...] allergy spray. 05/13/2018 Appointment: Madhuri Villegas WPtel: [phone] [address] [place] (15 min) Moderate 05/13/2018 Patient Education: Patient Medication Summary Completed 05/13/2018 Appointment: Melonie Chacko WPtel: [phone] [phone] [place] (15 min) Moderate 03/07/2018 Visit Plan: [...] symptoms improve. 12/19/2017 Appointment: [facility] WPtel: [phone] [facility]66[facility] (15 min) Moderate 12/19/2017 Patient Education: Patient [...] 09/13/2017 Appointment: Madhuri Villegas WPtel: [facility]5 [facility] (15 min) Moderate 09/13/2017 Patient Education: Patient Medication Summary Completed 09/13/2017 Care Plan: Referral Order SNOMED-CT : 282391556 Pending 09/13/2017 Visit Plan: Sinusitis - Pt has acut e infection - pain in face, maxillary region, Pt informed to use decongestant, RX given to patient, sinus rinses also recommended. Call if symptoms do not show improvement. 10/23/2016 Appointment: Melonie Chacko WPtel: [facility]5 [phone] (30 min) Complex 10/23/2016 Patient Education: Patient [...] temporal arteritis. 06/27/2016 Appointment: [facility] WPtel: [facility] (15 min) Moderate 06/27/2016 Patient Education: Patient [...] show improvement. 04/07/2016 Appointment: Melonie Chacko WPtel: [phone] [phone] (30 min) Complex 04/07/2016 Patient Education: Patient Medication Summary Completed 04/07/2016 Patient Education: Obesity Completed 04/07/2016 Visit Plan: Sinusitis - Pt has acut e infection - pain in face, maxillary region, Pt informed to use decongestant, RX given to patient, sinus rinses also recommended. Call if symptoms do not show improvement. 02/11/2016 Appointment: Melonie Chacko WPtel: [phone] (15 min) Moderate 02/11/2016 Patient Education: Patient Medication Summary Completed 02/11/2016 Patient Education: Obesity Completed 02/11/2016 Visit Plan: Skin tags - appear donna gn - no removal necessary at this time - if changes occur then would consider removal. skin tag on right nasal bridge - no removal - watchful waiting. 12/02/2015 Appointment: [facility] WPtel: [facility]7 [facility] (15 min) Moderate 12/02/2015 Patient Education: Patient [...] 09/29/2015 Appointment: Melonie Chacko WPtel: [facility]9 [phone] New Patient 09/29/2015 Patient Education: Patient Medication [...]
--- OUTSIDE RECORDS SUMMARY | 2020-01-08 10:22 | XMS REPORT | CCD ---
Author Author Malvin Villegas Organization [facility] Address [address] [place] [address] Phone Care Team Providers Care Field Laboratory Operator Name Role Phone PP Unavailable CCM Unavailable Summary Purpose Interface Exchange Insurance Providers Payer name Policy type / Coverage type Covered green party ID Effective Begin Date Effective End Date MARYANNE BULL (2012 THRU) Emma [id number] Unknown Unknown Family history Father Diagnosis Age At Onset Cardiomyopathy Unknown Social History Social History Element Codes Description Effective Dates Marital status Unknown M kenya Griffith 12/19/2017 Number of children Unknown 3 09/29/[address]: 211238398 Never smoker 09/29/2015 Alcohol history Unknown occasionally [...] Instructions Augmentin 875 mg-125 mg tablet RxNorm: 880483 1 Tablet(s) PO BID 05/13/2018 05/19/2018 Inactive Kenalog 40 mg/mL chacha pension for injection RxNorm: 0635604 1 Milliliter(s) Inj 05/13/2018 05/13/2018 In active propranolol 10 mg ta blet RxNorm: 981585 1/2 Tablet(s) daily 12/19/2017 12/21/2018 Active 11/19/2017 11:27:19 AM propranolol 10 mg ta blet RxNorm: 650283 TAKE 1 TABLET BY MOUT H TWICE DAILY 11/20/2017 12/18/2017 In active 11/19/2017 11:27:19 AM cyclobenzaprine 5 mg tablet RxNorm: 719363 1-2 Tablet(s) PO TID as needed 09/13/2017 09/17/2017 In active Zorvolex 18 mg capsule RxNorm: 1089225 1 Capsule(s) PO TID 09/13/2017 12/18/2017 Inactive propranolol 10 mg ta blet RxNorm: 234668 1 Tablet(s) PO BID 06/07/2017 09/04/2017 Inactive prednisone 20 mg tablet RxNorm: 880855 2 Tablet(s) PO daily 10/23/2016 10/27/2016 Inactive Augmentin 875 mg-125 mg tablet RxNorm: 286302 1 Tablet(s) PO BID 10/23/2016 10/29/2016 Inactive propranolol 10 mg ta blet RxNorm: 529330 1 Tablet(s) PO BID 06/29/2016 09/26/2016 Inactive Fish Oil 360 mg-1,20 0 mg capsule RxNorm: 538710 1 Capsule(s) PO BID 06/29/2016 12/18/2017 Inactive propranolol 10 mg ta blet RxNorm: 736332 1 Tablet(s) PO BID 06/27/2016 06/28/2016 Inactive ceftriaxone 500 mg s olution for injection RxNorm: 1944204 Inj 04/07/2016 04/07/2016 Inactive Kenalog 40 mg/mL chacha pension for injection RxNorm: 3669794 Milliliter(s) Inj 04/07/2016 04/07/2016 In active Zithromax Z-Devon 250 mg tablet RxNorm: 411791 1 Tablet(s) PO UD 04/07/2016 04/11/2016 Inactive zpack Augmentin 875 mg-125 mg tablet RxNorm: 548343 1 Tablet(s) PO BID 02/11/2016 02/20/2016 Inactive Zithromax Z-Devon 250 mg tablet RxNorm: 649007 Tablet(s) PO UD 09/29/2015 12/01/2015 Inactive Sudafed 24 Hour oral RxNorm: 88458 oral No Start Date Active Fish Oil 360 mg-1,20 0 mg capsule RxNorm: 337602 1 Capsule(s) PO BID No Start Date 06/28/2016 Inactive Medication Administered Medication Codes Instruc tions Start Date Status Kenalog 40 mg/mL suspension for injection RxNorm: 2413286 1Milliliter 05/13/2018 N o longer Active Kenalog 40 mg/mL suspension for injection RxNorm: 3046052 Milliliter 04/07/2016 No longer Active ceftriaxone 500 mg solution for injection RxNorm: 2457292 04/07/2016 No longer A ctive Immunizations Vaccine [...] 15.3 g/dl 06/28/2016 Cbc With Differential Ord2 HCT 42.7 % 06/28/2016 Cbc With Differential Ord2 Neut% 49.8 % 06/28/2016 Cbc With Differential Ord2 MCV 85.2 fl 06/28/2016 Cbc With Differential Ord2 Lymph% 33.3 % 06/28/2016 Cbc With Differential Ord2 MCH 30.5 pg 06/28/2016 Cbc With Differential Ord2 [place]% 12.8 % 06/28/2016 Cbc With Differential Ord2 MCHC 35.8 pg 06/28/2016 Cbc With Differential Ord2 Eos% 3.1 % 06/28/2016 Cbc With Differential Ord2 PLT 211 K/ul 06/28/2016 Cbc With Differential Ord2 Baso% 1.0 % 06/28/2016 Cbc With Differential Ord2 RDW 12.8 % 06/28/2016 Cbc With Differential Ord2 Neut ABS# 2.60 K/ul 06/28/2016 Cbc With Differential Ord2 Lymph ABS# 1.74 K/ul 06/28/2016 Cbc With Differential Ord2 [place] ABS# 0.7 K/ul 06/28/2016 Cbc With Differential Ord2 Eos ABS# 0.2 K/ul 06/28/2016 Cbc With Differential Ord2 Baso ABS# 0.1 K/ul 06/28/2016 Comp Metabolic Fgx394 NA 140 mEq/L 06/28/2016 Comp Metabolic Beu706 K 4.1 mEq/L 06/28/2016 Comp Metabolic Kor938 CL 104 mEq/L 06/28/2016 Comp Metabolic Fjs128 CO2 28.0 mEq/L 06/28/2016 Comp Metabolic Une874 AN ION GAP 12 06/28/2016 Comp Metabolic Ipi109 GL UCOSE 93 mg/dL 06/28/2016 Comp Metabolic Mps511 Cr eat 1.0 mg/dL 06/28/2016 Comp Metabolic Bbm310 eG FR 97 ml/min/1.73m2 06/28 Comp Metabolic Teq662 BUN 12 mg/dL 06/28/2016 Comp Metabolic Fvl023 B/ C Ratio 12.6 Ratio 06/28/2016 Comp Metabolic Bhm999 CA LCIUM 9.6 mg/dL 06/28/2016 Comp Metabolic Wiq855 AL K PHOS 73 U/L 06/28/2016 Comp Metabolic Lix115 T(SGOT) 18 U/L 06/28/2016 Comp Metabolic Xnh201 AL T(SGPT) 31 U/L 06/28/2016 Comp Metabolic Uwg949 BI LI T 0.5 mg/dL 06/28/2016 Comp Metabolic Our600 AL BUMIN 4.8 g/dL 06/28/2016 Comp Metabolic Cma015 TP RO 6.9 g/dL 06/28/2016 Comp Metabolic Oen712 GL OB 2.1 g/dL 06/28/2016 Comp Metabolic Wic814 A/ G Ratio 2.2 Ratio 06/28/2016 Comp Metabolic Qcc923 Os mo 279 mOsmo 06/28/2016 Tsh Ord6 [...] of head f rom right to left yarsanism Full Exam - General 1994 Musculoskeletal head [...] CPT-4: J3301 05/13/2018 THER/PROPH/DIAG INJ SC/IM CPT-4: 13229 05/13/2018 TRIAMCINOLONE ACET I [place] NOS CPT-4: J3301 04/07/2016 ROCEPHIN, PER 250 MG CPT-4: J0696 04/07/2016 Vital Signs Date Vital 07/01/2018 Blood Pressure 1: 124/80 Code: 8480-6 BMI: 24.4 Code: 25957-0 Heart Rate 1: 97 bpm Height: 5'10" SpO2: 97% Weight: 170 lbs 05/13/2018 Blood Pressure 1: 132/80 Code: 8480-6 BMI: 24.7 Code: 93351-0 Heart Rate 1: 100 bpm Height: 5'10" SpO2: 96% Temperature: 36.7 (C ) / 98.1 (F) Weight: 172 lbs 12/19/2017 Blood Pressure 1: 122/80 Code: 8480-6 BMI: 25.5 Code: 27694-3 Heart Rate 1: 88 bpm Height: 5'10" SpO2: 98% Weight: 178 lbs 09/13/2017 Blood Pressure 1: 122/74 Code: 8480-6 BMI: 25.5 Code: 23643-2 Heart Rate 1: 85 bpm Height: 5'10" SpO2: 97% Weight: 178 lbs 10/23/2016 Blood Pressure 1: 136/72 Code: 8480-6 BMI: 26.0 Code: 24958-6 Heart Rate 1: 105 bpm Height: 5'10" SpO2: 96% Temperature: 36.4 (C ) / 97.6 (F) Weight: 181 lbs 06/27/2016 Blood Pressure 1: 130/78 Code: 8480-6 BMI: 25.3 Code: 86666-3 Heart Rate 1: 75 bpm Height: 5'10" SpO2: 98% Weight: 176 lbs 04/07/2016 Blood Pressure 1: 140/80 Code: 8480-6 BMI: 25.5 Code: 64541-2 Heart Rate 1: 106 bpm Height: 5'10" SpO2: 95% Weight: 178 lbs 02/11/2016 Blood Pressure 1: 128/80 Code: 8480-6 BMI: 25.5 Code: 64330-5 Heart Rate 1: 88 bpm Height: 5'10" SpO2: 98% Weight: 178 lbs 12/02/2015 Blood Pressure 1: 128/80 Code: 8480-6 BMI: 26.0 Code: 41436-6 Heart Rate 1: 70 bpm Height: 5'10" SpO2: 98% Weight: 181 lbs 8 oz 09/29/2015 Blood Pressure 1: 148/80 Code: 8480-6 BMI: 26.3 Code: 15239-3 Heart Rate 1: 82 bpm Height: 5'10" [...] Encounters Encounter Performer Loca tion Codes Date ([id number]) [id number] EST. P ATIENT, LEVEL IV Diagnosis: Palpitations[ICD10: R00.2] Diagnosis: Pain in right knee[ICD10: M25.561] Diagnosis: Other insomnia[ICD10: G47.09] Melonie Samuels MD, [facility] CPT- 4: 00566 07/01/2018 06756 EST. PATIENT, LEVEL IV Diagnosis: Other acute sinusitis[ICD10: J01.80] Diagnosis: Other allergic rhinitis[ICD10: J30.89] Madhuri Samuels MD, [facility] CPT-4: 89606 05/13/2018 ([id number]) 44193 EST. 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 PATIENT, LEVEL III Diagnosis: Cervicalgia[ICD10: M54.2] Diagnosis: Muscle spasm of back[ICD10: M62.830] Madhuri Samuels MD, [facility] CPT- 4: 24583 09/13/2017 ([id number]) 25221 EST. P ATIENT, LEVEL III Diagnosis: Acute recurrent maxillary sinusitis[ICD10: J01.01] Diagnosis: Cough[ICD10: R05] Melonie Samuels MD, [facility] CPT-4: 76319 10/23/2016 ([id number]) 68047 EST. P ATIENT, LEVEL IV Diagnosis: Headache[ICD10: R51] Diagnosis: Other headache syndrome[ICD10: G44.89] Diagnosis: Retrograde amnesia[ICD10: R41.2] Sherrie Samuels MD, [facility] CPT-4: 26758 06/27/2016 ([id number]) 20679 EST. P ATIENT, LEVEL III Diagnosis: Cough[ICD10: R05] Diagnosis: Acute recurrent maxillary sinusitis[ICD10: J01.01] Melonie Samuels MD, [facility] CPT-4: 01367 04/07/2016 09539 EST. PATIENT, LEVEL IV Diagnosis: Other acute sinusitis[ICD10: J01.80] Madhuri Samuels MD, [facility] CPT- 4: 73003 02/11/2016 ([id number]) 03762 EST. P ATIENT, LEVEL II Diagnosis: Other hypertrophic disorders of the skin[ICD10: L91.8] Sherrie Samuels MD, [facility] CPT-4: 44625 12/02/2015 ([id number]) OFFICE VISI T, NEW - LEVEL 4 Diagnosis: Other acute sinusitis[ICD10: J01.80] Diagnosis: Acute upper respiratory infection, unspecified[ICD10: J06.9] Madhuri Samuels MD, [facility] CPT-4: 27016 09/29/2015 Plan of Care Planned Activity Notes [...] time insomnia. 07/01/2018 Appointment: Melonie Chacko WPtel: [address] [place], [place] [phone] (15 min) Moderate 07/01/2018 Patient Education: Patient [...] spray. 05/13/2018 Appointment: Madhuri Villegas WPtel: [phone] [phone] [place] (15 min) Moderate 05/13/2018 Patient Education: Patient Medication Summary Completed 05/13/2018 Appointment: Melonie Chacko WPtel: [phone] [phone] [place] (15 min) Moderate 03/07/2018 Visit Plan: [...] symptoms improve. 12/19/2017 Appointment: Sherrie Samuels WPtel: [phone] [facility]66[facility] (15 min) Moderate 12/19/2017 Patient Education: Patient [...] or concerns. 09/13/2017 Appointment: Madhuri Villegas WPtel: [facility]5 [facility] (15 min) Moderate 09/13/2017 Patient Education: Patient Medication Summary Completed 09/13/2017 Care Plan: Referral Order SNOMED-CT : [id number] Pending 09/13/2017 Visit Plan: Sinusitis - Pt has acut e infection - pain in face, maxillary region, Pt informed to use decongestant, RX given to patient, sinus rinses also recommended. Call if symptoms do not show improvement. 10/23/2016 Appointment: Melonie Chacko WPtel: [facility]5 [phone] (30 min) Complex 10/23/2016 Patient Education: Patient [...] temporal arteritis. 06/27/2016 Appointment: Sherrie Samuels WPtel: [facility]1 [phone] (15 min) Moderate 06/27/2016 Patient Education: Patient [...] show improvement. 04/07/2016 Appointment: Melonie Chacko WPtel: [phone] [phone] (30 min) Complex 04/07/2016 Patient Education: Patient Medication Summary Completed 04/07/2016 Patient Education: Obesity Completed 04/07/2016 Visit Plan: Sinusitis - Pt has acut e infection - pain in face, maxillary region, Pt informed to use decongestant, RX given to patient, sinus rinses also recommended. Call if symptoms do not show improvement. 02/11/2016 Appointment: Melonie Chacko WPtel: [facility]4 [phone] (15 min) Moderate 02/11/2016 Patient Education: Patient Medication Summary Completed 02/11/2016 Patient Education: Obesity Completed 02/11/2016 Visit Plan: Skin tags - appear donna gn - no removal necessary at this time - if changes occur then would consider removal. skin tag on right nasal bridge - no removal - watchful waiting. 12/02/2015 Appointment: Sherrie Samuels WPtel: [facility]0 [phone] (15 min) Moderate 12/02/2015 Patient Education: Patient [...] show improvement. 09/29/2015 Appointment: Melonie Chacko WPtel: [facility]1 [phone] New Patient 09/29/2015 Patient Education: Patient Medication [...]
--- OUTSIDE RECORDS SUMMARY | 2020-01-08 10:22 | XMS REPORT | CCD ---
Author Malvin Little Organization [facility] Address [address] [place] [address] Phone Care Team Providers Care Juvenile Corrections Officer Name Role Phone PP Unavailable CCM Unavailable Summary Purpose Interface Exchange Insurance Providers Payer name Policy type / Coverage type Covered constitution party ID Effective Begin Date Effective End Date MARYANNE BULL (2012 THRU) Emma [id number] Unknown Unknown Family history Father Diagnosis Age At Onset Cardiomyopathy Unknown Social History Social History Element Codes Description Effective Dates Marital status Unknown M kenya Griffith 12/19/2017 Number of children Unknown 3 09/29/[address]: 763711762 Never smoker 09/29/2015 Alcohol history Unknown occasionally drinks alcohol 09/29/2015 Allergies, Adverse Reactions, Alerts Substance Reaction Codes Entered Date Inactivated Date Status * NO KNOWN DRUG JERRY RGIES Unknown 09/29/2015 No Inactive Date Active Past Medical History Illness Codes Condition Status Onset Date Resolved Date Other acute sinusitis ICD-9: 461.8 ICD-10: J01.80 [...] Codes Effectiv e Dates Condition Status Other acute sinusitis ICD-9: 461.8 ICD-10: J01.80 [...] Instructions Augmentin 875 mg-125 mg tablet RxNorm: 819819 1 Tablet(s) PO BID 05/13/2018 05/19/2018 Active Kenalog 40 mg/mL chacha pension for injection RxNorm: 0623937 1 Milliliter(s) Inj 05/13/2018 05/13/2018 In active propranolol 10 mg ta blet RxNorm: 808700 1/2 Tablet(s) daily 12/19/2017 12/21/2018 Active 11/19/2017 11:27:19 AM propranolol 10 mg ta blet RxNorm: 952244 TAKE 1 TABLET BY MOUT H TWICE DAILY 11/20/2017 12/18/2017 In active 11/19/2017 11:27:19 AM cyclobenzaprine 5 mg tablet RxNorm: 717033 1-2 Tablet(s) PO TID as needed 09/13/2017 09/17/2017 In active Zorvolex 18 mg capsule RxNorm: 8855484 1 Capsule(s) PO TID 09/13/2017 12/18/2017 Inactive propranolol 10 mg ta blet RxNorm: 805452 1 Tablet(s) PO BID 06/07/2017 09/04/2017 Inactive prednisone 20 mg tablet RxNorm: 427870 2 Tablet(s) PO daily 10/23/2016 10/27/2016 Inactive Augmentin 875 mg-125 mg tablet RxNorm: 597264 1 Tablet(s) PO BID 10/23/2016 10/29/2016 Inactive propranolol 10 mg ta blet RxNorm: 819207 1 Tablet(s) PO BID 06/29/2016 09/26/2016 Inactive Fish Oil 360 mg-1,20 0 mg capsule RxNorm: 846479 1 Capsule(s) PO BID 06/29/2016 12/18/2017 Inactive propranolol 10 mg ta blet RxNorm: 384796 1 Tablet(s) PO BID 06/27/2016 06/28/2016 Inactive ceftriaxone 500 mg s olution for injection RxNorm: 3458244 Inj 04/07/2016 04/07/2016 Inactive Kenalog 40 mg/mL chacha pension for injection RxNorm: 8425245 Milliliter(s) Inj 04/07/2016 04/07/2016 In active Zithromax Z-Devon 250 mg tablet RxNorm: 535309 1 Tablet(s) PO UD 04/07/2016 04/11/2016 Inactive zpack Augmentin 875 mg-125 mg tablet RxNorm: 708220 1 Tablet(s) PO BID 02/11/2016 02/20/2016 Inactive Zithromax Z-Devon 250 mg tablet RxNorm: 069404 Tablet(s) PO UD 09/29/2015 12/01/2015 Inactive Sudafed 24 Hour oral RxNorm: 68764 oral No Start Date Active Fish Oil 360 mg-1,20 0 mg capsule RxNorm: 362894 1 Capsule(s) PO BID No Start Date 06/28/2016 Inactive Medication Administered Medication Codes Instruc tions Start Date Status Kenalog 40 mg/mL suspension for injection RxNorm: 6747537 1Milliliter 05/13/2018 N o longer Active Kenalog 40 mg/mL suspension for injection RxNorm: 2728683 Milliliter 04/07/2016 No longer Active ceftriaxone 500 mg solution for injection RxNorm: 1836938 04/07/2016 No longer A ctive Immunizations Vaccine Codes Date Status Influenza CVX: 141 12/09 completed Assessments Condition Codes Effectiv e Dates Other acute sinusitis ICD-10: J01.80 ICD-9: 461.8 [...] Visit Reason For Visit Effective Dates Notes sinus congestion 05/13/2018 chest pain/pressure 12/19/2017 neck [...] 30.5 pg 06/28/2016 Cbc With Differential Ord2 [place]ugio% 12.8 % 06/28/2016 Cbc With Differential Ord2 [...] 1.74 K/ul 06/28/2016 Cbc With Differential Ord2 [place]ugio ABS# 0.7 K/ul 06/28/2016 Cbc With Differential Ord2 Eos ABS# 0.2 K/ul 06/28/2016 Cbc With Differential Ord2 Baso ABS# 0.1 K/ul 06/28/2016 Tsh Ord6 hTSH II 1.35 uIU/mL 06/28/2016 Lipid Ord30 CHOL 237 mg/dL 06/28/2016 Lipid Ord30 HDL 42.0 mg/dl 06/28/2016 Lipid Ord30 TRIG 126 mg/dL 06/28/2016 Lipid Ord30 LDL 170 mg/dL 06/28/2016 Lipid Ord30 C/HDL 5.6 Ratio 06/28/2016 Comp Metabolic Cyj764 NA 140 mEq/L 06/28/2016 Comp Metabolic Akt982 K 4.1 mEq/L 06/28/2016 Comp Metabolic Xcf351 CL 104 mEq/L 06/28/2016 Comp Metabolic Ism264 CO2 28.0 mEq/L 06/28/2016 Comp Metabolic Vgw789 AN ION GAP 12 06/28/2016 Comp Metabolic Wez354 GL UCOSE 93 mg/dL 06/28/2016 Comp Metabolic Vdv602 Cr eat 1.0 mg/dL 06/28/2016 Comp Metabolic Aer710 eG FR 97 ml/min/1.73m2 06/28 Comp Metabolic Rpf011 BUN 12 mg/dL 06/28/2016 Comp Metabolic Hyp873 B/ C Ratio 12.6 Ratio 06/28/2016 Comp Metabolic Vcs890 CA LCIUM 9.6 mg/dL 06/28/2016 Comp Metabolic Svs188 AL K PHOS 73 U/L 06/28/2016 Comp Metabolic Ece524 T(SGOT) 18 U/L 06/28/2016 Comp Metabolic Yxe115 AL T(SGPT) 31 U/L 06/28/2016 Comp Metabolic Fyu565 BI LI T 0.5 mg/dL 06/28/2016 Comp Metabolic Yoj983 AL BUMIN 4.8 g/dL 06/28/2016 Comp Metabolic Fyf761 TP RO 6.9 g/dL 06/28/2016 Comp Metabolic Phk292 GL OB 2.1 g/dL 06/28/2016 Comp Metabolic Ued905 A/ G Ratio 2.2 Ratio 06/28/2016 Comp Metabolic Jtm115 Os mo 279 mOsmo 06/28/2016 Review of Systems System Result Effective Dates Constitutional recent illness 05/13/2018 Constitutional No chills [...] Result Effective Dates Notes Full Exam - ENT Constitutional general appearance [...] of head f rom right to left islam Full Exam - General 1994 Musculoskeletal head [...] clear 06/27/2016 None Full Exam - General 1995 Ears/Nose/Throat [...] CPT-4: J3301 05/13/2018 THER/PROPH/DIAG INJ SC/IM CPT-4: 03754 05/13/2018 TRIAMCINOLONE ACET I [place] NOS CPT-4: J3301 04/07/2016 ROCEPHIN, PER 250 MG CPT-4: J0696 04/07/2016 Vital Signs Date Vital 05/13/2018 Blood Pressure 1: 132/80 Code: 8480-6 BMI: 24.7 Code: 25946-6 Heart Rate 1: 100 bpm Height: 5'10" SpO2: 96% Temperature: 36.7 (C ) / 98.1 (F) Weight: 172 lbs 12/19/2017 Blood Pressure 1: 122/80 Code: 8480-6 BMI: 25.5 Code: 60649-7 Heart Rate 1: 88 bpm Height: 5'10" SpO2: 98% Weight: 178 lbs 09/13/2017 Blood Pressure 1: 122/74 Code: 8480-6 BMI: 25.5 Code: 19892-1 Heart Rate 1: 85 bpm Height: 5'10" SpO2: 97% Weight: 178 lbs 10/23/2016 Blood Pressure 1: 136/72 Code: 8480-6 BMI: 26.0 Code: 73916-4 Heart Rate 1: 105 bpm Height: 5'10" SpO2: 96% Temperature: 36.4 (C ) / 97.6 (F) Weight: 181 lbs 06/27/2016 Blood Pressure 1: 130/78 Code: 8480-6 BMI: 25.3 Code: 29063-0 Heart Rate 1: 75 bpm Height: 5'10" SpO2: 98% Weight: 176 lbs 04/07/2016 Blood Pressure 1: 140/80 Code: 8480-6 BMI: 25.5 Code: 49721-1 Heart Rate 1: 106 bpm Height: 5'10" SpO2: 95% Weight: 178 lbs 02/11/2016 Blood Pressure 1: 128/80 Code: 8480-6 BMI: 25.5 Code: 42278-0 Heart Rate 1: 88 bpm Height: 5'10" SpO2: 98% Weight: 178 lbs 12/02/2015 Blood Pressure 1: 128/80 Code: 8480-6 BMI: 26.0 Code: 61295-5 Heart Rate 1: 70 bpm Height: 5'10" SpO2: 98% Weight: 181 lbs 8 oz 09/29/2015 Blood Pressure 1: 148/80 Code: 8480-6 BMI: 26.3 Code: 39894-4 Heart Rate 1: 82 bpm Height: 5'10" SpO2: 97% Weight: 183 lbs Functional Status No Functional Status data History of Present Illness Symptom Name Status Resu lt Effective Date Notes Location frontal sinuses 05/13/2018 None Quality fullness [...] Encounters Encounter Performer Loca tion Codes Date 78089 EST. PATIENT, LEVEL IV Diagnosis: Other acute sinusitis[ICD10: J01.80] Diagnosis: Other allergic rhinitis[ICD10: J30.89] Madhuri Samuels MD, [facility] CPT-4: 95292 05/13/2018 ([id number]) 12878 EST. P ATIENT, LEVEL IV Diagnosis: Chondrocostal junction syndrome [Tietze][ICD10: M94.0] Diagnosis: Dizziness and giddiness[ICD10: R42] Diagnosis: Other allergic and dietetic gastroenteritis and colitis[ICD10: K52.29] Sher[facility] MD, [facility] CPT-4: 40341 12/19/2017 46092 EST. PATIENT, LEVEL III Diagnosis: Cervicalgia[ICD10: M54.2] Diagnosis: Muscle spasm of back[ICD10: M62.830] Madhuri Samuels MD, [facility] CPT- 4: 34990 09/13/2017 ([id number]) 46086 EST. P ATIENT, LEVEL III Diagnosis: Acute recurrent maxillary sinusitis[ICD10: J01.01] Diagnosis: Cough[ICD10: R05] Melonie Samuels MD, [facility] CPT-4: 55946 10/23/2016 ([id number]) 00262 EST. P ATIENT, LEVEL IV Diagnosis: Headache[ICD10: R51] Diagnosis: Other headache syndrome[ICD10: G44.89] Diagnosis: Retrograde amnesia[ICD10: R41.2] Sher[facility] Sam[facility]els MD, [facility] CPT-4: 55640 06/27/2016 ([id number]) 58846 EST. P ATIENT, LEVEL III Diagnosis: Cough[ICD10: R05] Diagnosis: Acute recurrent maxillary sinusitis[ICD10: J01.01] Melonie Samuels MD, [facility] CPT-4: 94464 04/07/2016 09493 EST. PATIENT, LEVEL IV Diagnosis: Other acute sinusitis[ICD10: J01.80] Madhuri Samuels MD, [facility] CPT- 4: 20285 02/11/2016 ([id number]) 19330 EST. P ATIENT, LEVEL II Diagnosis: Other hypertrophic disorders of the skin[ICD10: L91.8] [facility] Samuels MD, [facility] CPT-4: 75289 12/02/2015 ([id number]) OFFICE VISI T, NEW - LEVEL 4 Diagnosis: Other acute sinusitis[ICD10: J01.80] Diagnosis: Acute upper respiratory infection, unspecified[ICD10: J06.9] Madhuri Samuels MD, [facility] CPT-4: 09218 09/29/2015 Plan of Care Planned Activity Notes C odes Status Date Visit Plan: Sinusitis - Pt has acut [...] allergy spray. 05/13/2018 Appointment: Madhuri Villegas WPtel: [facility] [place] [phone] (15 min) Moderate 05/13/2018 Patient Education: Patient Medication Summary Completed 05/13/2018 Appointment: Melonie Chacko WPtel: [facility] [place] [phone] [place] (15 min) Moderate 03/07/2018 Visit Plan: [...] symptoms improve. 12/19/2017 Appointment: Sherrie Samuels WPtel: [facility] (15 min) Moderate 12/19/2017 Patient Education: Patient [...] or concerns. 09/13/2017 Appointment: Madhuri Villegas WPtel: [facility] (15 min) Moderate 09/13/2017 Patient Education: Patient Medication Summary Completed 09/13/2017 Care Plan: Referral Order SNOMED-CT : [id number] Pending 09/13/2017 Visit Plan: Sinusitis - Pt has acut e infection - pain in face, maxillary region, Pt informed to use decongestant, RX given to patient, sinus rinses also recommended. Call if symptoms do not show improvement. 10/23/2016 Appointment: Melonie Chacko WPtel: [address] [place] [address] (30 min) Complex 10/23/2016 Patient Education: Patient [...] temporal arteritis. 06/27/2016 Appointment: Sherrie Samuels WPtel: [address] [place] [address] (15 min) Moderate 06/27/2016 Patient Education: Patient [...] show improvement. 04/07/2016 Appointment: Melonie Chacko WPtel: [address] [place], [place] [phone] [place] [address] (30 min) Complex 04/07/2016 Patient Education: Patient Medication Summary Completed 04/07/2016 Patient Education: Obesity Completed 04/07/2016 Visit Plan: Sinusitis - Pt has acut e infection - pain in face, maxillary region, Pt informed to use decongestant, RX given to patient, sinus rinses also recommended. Call if symptoms do not show improvement. 02/11/2016 Appointment: Melonie Chacko WPtel: [address] [place], [place] [phone] (15 min) Moderate 02/11/2016 Patient Education: Patient Medication Summary Completed 02/11/2016 Patient Education: Obesity Completed 02/11/2016 Visit Plan: Skin tags - appear donna gn - no removal necessary at this time - if changes occur then would consider removal. skin tag on right nasal bridge - no removal - watchful waiting. 12/02/2015 Appointment: [phone] (15 min) Moderate 12/02/2015 Patient Education: Patient [...] show improvement. 09/29/2015 Appointment: [phone] [place] [address] New Patient 09/29/2015 Patient Education: Patient Medication [...]
--- OUTSIDE RECORDS SUMMARY | 2020-01-08 10:23 | XMS REPORT | Continuity of Care Document ---
Demographics Preferred Language Unknown Marital Status Unknown Judaism Affiliation Unknown Race Unknown Ethnic Group Unknown Author Organization Unknown Address Unknown Phone Unavailable Allergies Active Description Code Type Severity Reaction Onset Reported/Identified Relationship to Patient Clinical Status Yes No Known Drug Allergies [id number] Drug Allergy Unknown N/A 07/17/2016 Medications There is no data. Problems Date Dx Coded Attending Type Code Diagnosis Diagnosed By 07/18/2016 ANDRES GOODSON, CRISTHIAN A Ot R41.3 OTHER AMNESIA 07/18/2016 ANDRES GOODSON, CRISTHIAN A Ot R5 1 HEADACHE 08/02/2016 CRISTHIAN CAMPOS MD A Ot R41.3 OTHER AMNESIA 08/02/2016 ANDRES GOODSON, CRISTHIAN A Ot R5 1 HEADACHE 11/27/2016 CRISTHIAN CAMPOS MD A Ot R41.3 OTHER AMNESIA 11/27/2016 ANDRES GOODSON, CRISTHIAN A Ot R5 1 HEADACHE 11/30/2016 ANDRES GOODSON, CRISTHIAN A Ot R41.3 OTHER AMNESIA 11/30/2016 ANDRES GOODSON, CRISTHIAN A Ot R5 1 HEADACHE 09/13/2017 ANDREA VILLEGAS SADDLE [employer] HARNESS MAKER Ot M50.322 OTHER CERVICAL DISC DEGENERATION AT C5-C 09/13/2017 ANDRES GOODSON, CRISTHIAN A Ot R41.3 OTHER AMNESIA 09/13/2017 ANDRES GOODSON, CRISTHIAN A Ot R5 1 HEADACHE 09/17/2017 CRISTHIAN CAMPOS MD A Ot R41.3 OTHER AMNESIA 09/17/2017 ANDRES GOODSON, CRISTHIAN A Ot R5 1 HEADACHE 09/17/2017 ANDREA VILLEGAS APRN Ot M50.322 OTHER CERVICAL DISC DEGENERATION AT C5-C 09/19/2017 CRISTHIAN CAMPOS MD A Ot R41.3 OTHER AMNESIA 09/19/2017 ANDRES GOODSON, CRISTHIAN A Ot R5 1 HEADACHE 09/19/2017 ANDREA VILLEGAS APRN Ot M50.322 OTHER CERVICAL DISC DEGENERATION AT C5-C 09/20/2017 JESS DILLON Ot G89. 4 CHRONIC PAIN SYNDROME 09/20/2017 JESS DILLON Ot M54. 2 CERVICALGIA 09/20/2017 JESS DILLON Ot M79.601 PAIN IN RIGHT ARM 09/20/2017 SWEET PASVETLANAJESS R Ot R20. 0 ANESTHESIA OF SKIN 09/20/2017 SWEET PA, JESS R Ot R20. 2 PARESTHESIA OF SKIN 08/12/2018 MELONIE CHACKO GROCERY PACKER Ot R00.2 PALPITATIONS 09/11/2018 JUANITA GOODSON FACC, ALI FACP CCDS Ot R00.2 PALPITATIONS 09/11/2018 JUANITA GOODSON FACC, ALI FACP CCDS Ot R06.02 SHORTNESS OF BREATH 09/11/2018 JUANITA GOODSON FACLudy, ALI FACP CCDS Ot R07.89 OTHER CHEST PAIN 10/03/2018 MELONIE CHACKO GROCERY PACKER Ot R00.2 PALPITATIONS 03/13/2019 CRISTHIAN CAMPOS MD Ot R41.3 OTHER AMNESIA 03/13/2019 CRISTHIAN CAMPOS MD Ot R5 1 HEADACHE 03/13/2019 ANDREA VILLEGAS APRN Ot M50.322 OTHER CERVICAL DISC DEGENERATION AT C5-C 03/13/2019 SVETLANA DILLONSHUA R Ot G89. 4 CHRONIC PAIN SYNDROME 03/13/2019 SWEET PA, JESS R Ot M54. 2 CERVICALGIA 03/13/2019 SWEET PA, JESS R Ot M79.601 PAIN IN RIGHT ARM 03/13/2019 SWEET PASVETLANAJESS R Ot R20. 0 ANESTHESIA OF SKIN 03/13/2019 SWEET PASVETLANAJESS R Ot R20. 2 PARESTHESIA OF SKIN 03/13/2019 JUANITA GOODSON FACC, ALI FACP CCDS Ot R00.2 PALPITATIONS 03/13/2019 JUANITA GOODSON FACLudy, ALI FACP CCDS Ot R06.02 SHORTNESS OF BREATH 03/13/2019 JUANITA GOODSON FACC, ALI FACP CCDS Ot R07.89 OTHER CHEST PAIN 03/13/2019 JUANITA GOODSON FACC, ALI FACP CCDS Ot R00.2 PALPITATIONS 03/13/2019 JUANITA GOODSON FACLudy, ALI FACP CCDS Ot R06.02 SHORTNESS OF BREATH 03/13/2019 JUANITA GOODSON FACC, ALI FACP CCDS Ot R07.89 OTHER CHEST PAIN 03/13/2019 MELONIE CHACKO GROCERY PACKER Ot R00.2 PALPITATIONS 03/13/2019 CRISTHIAN CAMPOS MD Ot R41.3 OTHER AMNESIA 03/13/2019 ANDRES GOODSON, CRISTHIAN Mcgraw Ot R5 1 HEADACHE 03/13/2019 ANDREA VILLEGAS SADD[employer]ARN[employer] MAKER Ot M50.322 OTHER CERVICAL DISC DEGENERATION AT C5-C 03/13/2019 SWEET PA, JESS R Ot G89. 4 CHRONIC PAIN SYNDROME 03/13/2019 SWEET PA, JESS R Ot M54. 2 CERVICALGIA 03/13/2019 SWEET PA, JESS R Ot M79.601 PAIN IN RIGHT ARM 03/13/2019 SWEET PA, JESS R Ot R20. 0 ANESTHESIA OF SKIN 03/13/2019 SWEET PA, JESS R Ot R20. 2 PARESTHESIA OF SKIN 03/13/2019 JUANITA GOODSON FACC, ALI FACP CCDS Ot R00.2 PALPITATIONS 03/13/2019 JUANITA GOODSON FACC, ALI FACP CCDS Ot R06.02 SHORTNESS OF BREATH 03/13/2019 JUANITA GOODSON FACC, ALI FACP CCDS Ot R07.89 OTHER CHEST PAIN 03/13/2019 JUANITA GOODSON FACC, ALI FACP CCDS Ot R00.2 PALPITATIONS 03/13/2019 JUANITA GOODSON FACC, ALI FACP CCDS Ot R06.02 SHORTNESS OF BREATH 03/13/2019 JUANITA GOODSON FACC, ALI FACP CCDS Ot R07.89 OTHER CHEST PAIN 03/13/2019 MELONIE CHACKO GROCERY PACKER Ot R00.2 PALPITATIONS 04/24/2019 ANDRES GOODSON, CRISTHIAN Mcgraw Ot R41.3 OTHER AMNESIA 04/24/2019 CRISTHIAN CAMPOS MD Ot R5 1 HEADACHE 04/24/2019 ANDREA VILLEGAS APRN Ot M50.322 OTHER CERVICAL DISC DEGENERATION AT C5-C 04/24/2019 SWEET PA, JESS R Ot G89. 4 CHRONIC PAIN SYNDROME 04/24/2019 SWEET PA, JESS R Ot M54. 2 CERVICALGIA 04/24/2019 SWEET PA, JESS R Ot M79.601 PAIN IN RIGHT ARM 04/24/2019 SWEET PA, JESS R Ot R20. 0 ANESTHESIA OF SKIN 04/24/2019 SWEET PA, JESS R Ot R20. 2 PARESTHESIA OF SKIN 04/24/2019 JUANITA GOODSON FACC, ALI FACP CCDS Ot R00.2 PALPITATIONS 04/24/2019 JUANITA GOODSON FACC, ALI FACP CCDS Ot R06.02 SHORTNESS OF BREATH 04/24/2019 JUANITA GOODSON FAC, ALI FACP CCDS Ot R07.89 OTHER CHEST PAIN 04/24/2019 JUANITA GOODSON FAC, ALI FACP CCDS Ot R00.2 PALPITATIONS 04/24/2019 JUANITA GOODSON FACC, ALI FACP CCDS Ot R06.02 SHORTNESS OF BREATH 04/24/2019 JUANITA GOODSON FAC, ALI FACP CCDS Ot R07.89 OTHER CHEST PAIN 04/24/2019 ZELDA MELONIE M GROCERY PACKER Ot R00.2 PALPITATIONS 08/08/2019 W L82.1 Sebo rrheic keratosis Andrea Villegas 08/28/2019 W J11.1 Infl uenza Chacko, Melonie 08/28/2019 W R05 Cough Chacko, Melonie 08/29/2019 W J11.1 Infl uenza Chacko, Melonie 08/29/2019 W R05 Cough Chacko, Melonie 12/09/2019 W K59.01 Slo w transit constipation Andrea Villegas 12/09/2019 W N50.811 Ri ght testicular pain Andrea Villegas 12/09/2019 W R10.31 Rig ht lower quadrant pain AugustinMaribellie 12/10/2019 ANDRES GOODSON, CRISTHIAN Mcgraw Ot R41.3 OTHER AMNESIA 12/10/2019 ANDRES GOODSON, CRISTHIAN Mcgraw Ot R5 1 HEADACHE 12/10/2019 AUGUSTINANDREA SADDLE AND HARNESS MAKER Ot M50.322 OTHER CERVICAL DISC DEGENERATION AT C5-C 12/10/2019 LYNDSAY DILLONUA R Ot G89. 4 CHRONIC PAIN SYNDROME 12/10/2019 SWEET PA, JESS R Ot M54. 2 CERVICALGIA 12/10/2019 SWEET PA, JESS R Ot M79.601 PAIN IN RIGHT ARM 12/10/2019 SWEET CHINO JESS R Ot R20. 0 ANESTHESIA OF SKIN 12/10/2019 ADI MAGANA JESS R Ot R20. 2 PARESTHESIA OF SKIN 12/10/2019 JUANITA GOODSON FACLudy, ALI FACP CCDS Ot R00.2 PALPITATIONS 12/10/2019 JUANITA GOODSON FACC, ALI FACP CCDS Ot R06.02 SHORTNESS OF BREATH 12/10/2019 JUANITA GOODSON FACC, ALI FACP CCDS Ot R07.89 OTHER CHEST PAIN 12/10/2019 JUANITA GOODSON [facility] Ot R00.2 PALPITATIONS 12/10/2019 JUANITA GOODSON FACC, ALI [facility] CCD[facility] Ot R06.02 SHORTNESS OF BREATH 12/10/2019 J[facility]ANITA GOODSON [facility] CCD[facility] Ot R07.89 OTHER CHEST PAIN 12/10/2019 MELONIE CHACKO GROCERY PACKER Ot R00.2 PALPITATIONS 12/10/2019 W K59.01 Slo w transit constipation Andrea Villegas 12/10/2019 W N50.811 Ri ght testicular pain Andrea Villegas 12/10/2019 W R10.31 Rig ht lower quadrant pain AugustinAndrea 12/15/2019 ANDREA VILLEGAS SADDLE [employer] HARNESS MAKER Ot I86.1 SCROTAL VARICES 12/15/2019 ANDREA VILLEGAS SADDLE AND HARNESS MAKER Ot K59.00 CONSTIPATION, UNSPECIFIED 12/15/2019 ANDREA VILLEGAS SADDLE AND HARNESS MAKER Ot N43.3 HYDROCELE, UNSPECIFIED 12/18/2019 ANDREA VILLEGAS SADDLE [employer] HARNESS MAKER Ot I86.1 SCROTAL VARICES 12/18/2019 ANDREA VILLEGAS SADDLE AND HARNESS MAKER Ot K59.00 CONSTIPATION, UNSPECIFIED 12/18/2019 ANDREA VILLEGAS SADDLE AND HARNESS MAKER Ot N43.3 HYDROCELE, UNSPECIFIED 12/31/2019 ANDRES GOODSON, CRISTHIAN Mcgraw Ot R41.3 OTHER AMNESIA 12/31/2019 ANDRES GOODSON, CRISTHIAN Mcgraw Ot R5 1 HEADACHE 12/31/2019 ANDREA VILLEGAS SADDLE AND HARNESS MAKER Ot M50.322 OTHER CERVICAL DISC DEGENERATION AT C5-C 12/31/2019 SWEET PA, JESS R Ot G89. 4 CHRONIC PAIN SYNDROME 12/31/2019 SWEET PA, JESS R Ot M54. 2 CERVICALGIA 12/31/2019 SWEET PA, JESS R Ot M79.601 PAIN IN RIGHT ARM 12/31/2019 SWEET PA, JESS R Ot R20. 0 ANESTHESIA OF SKIN 12/31/2019 SWEET PA, JESS R Ot R20. 2 PARESTHESIA OF SKIN 12/31/2019 JUANITA GOODSON [facility], SAVANAH FACP CCDS Ot R00.2 PALPITATIONS 12/31/2019 JUANITA DAWN, SAVANAH [facility] Ot R06.02 SHORTNESS OF BREATH 12/31/2019 JUANITA GOODSON FACC, SAVANAH ERICKSON CCDS Ot R07.89 OTHER CHEST PAIN 12/31/2019 JUANITA GOODSON FACC, SAVANAH ERICKSON CCDS Ot R00.2 PALPITATIONS 12/31/2019 JUANITA GOODSON FACC, SAVANAH DAWNP CCDS Ot R06.02 SHORTNESS OF BREATH 12/31/2019 JUANITA GOODSON FACC, SAVANAH DAWNP CCDS Ot R07.89 OTHER CHEST PAIN 12/31/2019 MELONIE CHACKO Ot R00.2 PALPITATIONS 12/31/2019 ANDREA VILLEGAS SADDLE AND HARNESS MAKER Ot I86.1 SCROTAL VARICES 12/31/2019 ANDREA VILLEGAS SADDLE AND HARNESS MAKER Ot K59.00 CONSTIPATION, UNSPECIFIED 12/31/2019 ANDREA VILLEGAS SADDLE AND HARNESS MAKER Ot N43.3 HYDROCELE, UNSPECIFIED Procedures There is no data. Results There is no data. Encounters ACCT No. Visit Date/Time Discharge Status Pt. Type Provider Facility Loc./Unit Complaint [id number] 07/31/2019 14:57:00 Document Registration [id number] 01/05/2020 05:35:00 10:27:00 DIS Outpatient LUIS MANUEL BUTLER MD [facility] PREOP RIGHT INGUINAL HERNIA [id number] 12/10/2019 15:30:00 23:59:59 CLS Outpatient ANDREA VILLEGAS APRN [facility] RAD R TESTICULAR PAIN,RLQ P AIN [id number] 10/04/2018 00:12:00 23:59:59 CLS Preadmit MELONIE CHACKO [facility] CARD PALPITATIONS [id number] 07/05/2018 08:31:00 00:01:00 DIS Outpatient MELONIE CHACKO [facility] CARD PALPITATIONS [id number] 09/10/2018 10:00:00 23:59:59 CLS Outpatient JUANITA GOODSON FACC, SAVANAH ERICKSON CC DS [facility] CARD CHEST DISCOMFOR T [id number] 08/14/2018 08:34:00 23:59:59 CLS Outpatient JUANITA GOODSON FACLudy, SAVANAH ERICKSON CC DS [facility] CARD CHEST DISCOMFOR T [id number] 08/08/2018 13:25:00 019 23:59:59 CLS Preadmit JUANITA GOODSON FACC, SAVANAH ERICKSON CCDS [facility] CARD CHEST DISCOMFOR T [id number] 09/19/2017 07:28:00 018 23:59:59 CLS Outpatient JESS DILLON [facility] RAD NECK PAIN [id number] 09/12/2017 14:05:00 018 23:59:59 CLS Outpatient ANDREA VILLEGAS APRN [facility] RAD NECK PAIN [id number] 07/17/2016 10:14:00 017 23:59:59 CLS Outpatient ANDRES GOODSON, CRISTHIAN Mcgraw [facility] RAD HEADACHES, MEMORY LOSS [id number] 01/08/2020 10:30:00 P EN Preadmit LUKE GOODSON, LUIS MANUEL [facility] RIGHT INGUINAL HERNIA
--- OUTSIDE RECORDS SUMMARY | 2020-01-08 10:23 | XMS REPORT | CCD ---
Author Malvin Little Organization [facility] Address [address] [place] [address] Phone Care Team Providers Care Surgical Tech Name Role Phone PP Unavailable CCM Unavailable Summary Purpose Interface Exchange Insurance Providers Payer name Policy type / Coverage type Covered libertarian ID Effective Begin Date Effective End Date MARYANNE BULL (2012 THRU) Emma [id number] Unknown Unknown Family history Father Diagnosis Age At Onset Cardiomyopathy Unknown Social History Social History Element Codes Description Effective Dates Marital status Unknown M kenya Griffith 12/19/2017 Number of children Unknown 3 09/29/[address]: 387793347 Never smoker 09/29/2015 Alcohol history Unknown occasionally [...] Instructions Augmentin 875 mg-125 mg tablet RxNorm: 174622 1 Tablet(s) PO BID 05/13/2018 05/19/2018 Active Kenalog 40 mg/mL chacha pension for injection RxNorm: 2542985 1 Milliliter(s) Inj 05/13/2018 05/13/2018 In active propranolol 10 mg ta blet RxNorm: 300498 1/2 Tablet(s) daily 12/19/2017 12/21/2018 Active 11/19/2017 11:27:19 AM propranolol 10 mg ta blet RxNorm: 072303 TAKE 1 TABLET BY MOUT H TWICE DAILY 11/20/2017 12/18/2017 In active 11/19/2017 11:27:19 AM cyclobenzaprine 5 mg tablet RxNorm: 592226 1-2 Tablet(s) PO TID as needed 09/13/2017 09/17/2017 In active Zorvolex 18 mg capsule RxNorm: 2418547 1 Capsule(s) PO TID 09/13/2017 12/18/2017 Inactive propranolol 10 mg ta blet RxNorm: 628831 1 Tablet(s) PO BID 06/07/2017 09/04/2017 Inactive prednisone 20 mg tablet RxNorm: 899573 2 Tablet(s) PO daily 10/23/2016 10/27/2016 Inactive Augmentin 875 mg-125 mg tablet RxNorm: 479773 1 Tablet(s) PO BID 10/23/2016 10/29/2016 Inactive propranolol 10 mg ta blet RxNorm: 105868 1 Tablet(s) PO BID 06/29/2016 09/26/2016 Inactive Fish Oil 360 mg-1,20 0 mg capsule RxNorm: 782156 1 Capsule(s) PO BID 06/29/2016 12/18/2017 Inactive propranolol 10 mg ta blet RxNorm: 428825 1 Tablet(s) PO BID 06/27/2016 06/28/2016 Inactive ceftriaxone 500 mg s olution for injection RxNorm: 0869653 Inj 04/07/2016 04/07/2016 Inactive Kenalog 40 mg/mL chacha pension for injection RxNorm: 2130932 Milliliter(s) Inj 04/07/2016 04/07/2016 In active Zithromax Z-Devon 250 mg tablet RxNorm: 971650 1 Tablet(s) PO UD 04/07/2016 04/11/2016 Inactive zpack Augmentin 875 mg-125 mg tablet RxNorm: 639398 1 Tablet(s) PO BID 02/11/2016 02/20/2016 Inactive Zithromax Z-Devon 250 mg tablet RxNorm: 498666 Tablet(s) PO UD 09/29/2015 12/01/2015 Inactive Sudafed 24 Hour oral RxNorm: 64543 oral No Start Date Active Fish Oil 360 mg-1,20 0 mg capsule RxNorm: 805439 1 Capsule(s) PO BID No Start Date 06/28/2016 Inactive Medication Administered Medication Codes Instruc tions Start Date Status Kenalog 40 mg/mL suspension for injection RxNorm: 6432994 1Milliliter 05/13/2018 A ctive ceftriaxone 500 mg solution for injection RxNorm: 5528585 04/07/2016 No longer A ctive Kenalog 40 mg/mL suspension for injection RxNorm: 2996821 Milliliter 04/07/2016 No longer Active Immunizations Vaccine [...] 30.5 pg 06/28/2016 Cbc With Differential Ord2 Hayes% 12.8 % 06/28/2016 Cbc With Differential Ord2 [...] 1.74 K/ul 06/28/2016 Cbc With Differential Ord2 Hayes ABS# 0.7 K/ul 06/28/2016 Cbc With Differential Ord2 Eos ABS# 0.2 K/ul 06/28/2016 Cbc With Differential Ord2 Baso ABS# 0.1 K/ul 06/28/2016 Comp Metabolic Vfr909 NA 140 mEq/L 06/28/2016 Comp Metabolic Hjw662 K 4.1 mEq/L 06/28/2016 Comp Metabolic Zuf913 CL 104 mEq/L 06/28/2016 Comp Metabolic Lgt109 CO2 28.0 mEq/L 06/28/2016 Comp Metabolic Sxu809 AN ION GAP 12 06/28/2016 Comp Metabolic Tik725 GL UCOSE 93 mg/dL 06/28/2016 Comp Metabolic Wlb107 Cr eat 1.0 mg/dL 06/28/2016 Comp Metabolic Vsb645 eG FR 97 ml/min/1.73m2 06/28 Comp Metabolic Plx957 BUN 12 mg/dL 06/28/2016 Comp Metabolic Tkn401 B/ C Ratio 12.6 Ratio 06/28/2016 Comp Metabolic Ale840 CA LCIUM 9.6 mg/dL 06/28/2016 Comp Metabolic Wxo707 AL K PHOS 73 U/L 06/28/2016 Comp Metabolic Ued114 T(SGOT) 18 U/L 06/28/2016 Comp Metabolic Snc903 AL T(SGPT) 31 U/L 06/28/2016 Comp Metabolic Udj456 BI LI T 0.5 mg/dL 06/28/2016 Comp Metabolic Qdj534 AL BUMIN 4.8 g/dL 06/28/2016 Comp Metabolic Tmp360 TP RO 6.9 g/dL 06/28/2016 Comp Metabolic Pvp659 GL OB 2.1 g/dL 06/28/2016 Comp Metabolic Fzn637 A/ G Ratio 2.2 Ratio 06/28/2016 Comp Metabolic Rmm350 Os mo 279 mOsmo 06/28/2016 Tsh Ord6 [...] of head f rom right to left confucianist Full Exam - General 1994 Musculoskeletal head [...] CPT-4: J3301 05/13/2018 THER/PROPH/DIAG INJ SC/IM CPT-4: 69911 05/13/2018 TRIAMCINOLONE ACET I [place] NOS CPT-4: J3301 04/07/2016 ROCEPHIN, PER 250 MG CPT-4: J0696 04/07/2016 Vital Signs Date Vital 05/13/2018 Blood Pressure 1: 132/80 Code: 8480-6 BMI: 24.7 Code: 95180-8 Heart Rate 1: 100 bpm Height: 5'10" SpO2: 96% Temperature: 36.7 (C ) / 98.1 (F) Weight: 172 lbs 12/19/2017 Blood Pressure 1: 122/80 Code: 8480-6 BMI: 25.5 Code: 96118-2 Heart Rate 1: 88 bpm Height: 5'10" SpO2: 98% Weight: 178 lbs 09/13/2017 Blood Pressure 1: 122/74 Code: 8480-6 BMI: 25.5 Code: 55903-3 Heart Rate 1: 85 bpm Height: 5'10" SpO2: 97% Weight: 178 lbs 10/23/2016 Blood Pressure 1: 136/72 Code: 8480-6 BMI: 26.0 Code: 33908-6 Heart Rate 1: 105 bpm Height: 5'10" SpO2: 96% Temperature: 36.4 (C ) / 97.6 (F) Weight: 181 lbs 06/27/2016 Blood Pressure 1: 130/78 Code: 8480-6 BMI: 25.3 Code: 63147-6 Heart Rate 1: 75 bpm Height: 5'10" SpO2: 98% Weight: 176 lbs 04/07/2016 Blood Pressure 1: 140/80 Code: 8480-6 BMI: 25.5 Code: 45407-0 Heart Rate 1: 106 bpm Height: 5'10" SpO2: 95% Weight: 178 lbs 02/11/2016 Blood Pressure 1: 128/80 Code: 8480-6 BMI: 25.5 Code: 24407-8 Heart Rate 1: 88 bpm Height: 5'10" SpO2: 98% Weight: 178 lbs 12/02/2015 Blood Pressure 1: 128/80 Code: 8480-6 BMI: 26.0 Code: 18322-8 Heart Rate 1: 70 bpm Height: 5'10" SpO2: 98% Weight: 181 lbs 8 oz 09/29/2015 Blood Pressure 1: 148/80 Code: 8480-6 BMI: 26.3 Code: 70417-9 Heart Rate 1: 82 bpm Height: 5'10" [...] Encounters Encounter Performer Loca tion Codes Date 61557 EST. PATIENT, LEVEL IV Diagnosis: Other acute sinusitis[ICD10: J01.80] Diagnosis: Other allergic rhinitis[ICD10: J30.89] Madhuri Samuels MD, [facility] CPT-4: 10135 05/13/2018 ([id number]) 54771 EST. P ATIENT, LEVEL IV Diagnosis: Chondrocostal junction syndrome [Tietze][ICD10: M94.0] Diagnosis: Dizziness and giddiness[ICD10: R42] Diagnosis: Other allergic and dietetic gastroenteritis and colitis[ICD10: K52.29] [facility] MD, [facility] CPT-4: 69945 12/19/2017 87531 EST. PATIENT, LEVEL III Diagnosis: Cervicalgia[ICD10: M54.2] Diagnosis: Muscle spasm of back[ICD10: M62.830] Madhuri Samuels MD, [facility] CPT- 4: 27262 09/13/2017 ([id number]) 09103 EST. P ATIENT, LEVEL III Diagnosis: Acute recurrent maxillary sinusitis[ICD10: J01.01] Diagnosis: Cough[ICD10: R05] Melonie Samuels MD, [facility] CPT-4: 74882 10/23/2016 ([id number]) 21188 EST. P ATIENT, LEVEL IV Diagnosis: Headache[ICD10: R51] Diagnosis: Other headache syndrome[ICD10: G44.89] Diagnosis: Retrograde amnesia[ICD10: R41.2] [facility] MD, [facility] CPT-4: 57886 06/27/2016 ([id number] 01111 EST. P ATIENT, LEVEL III Diagnosis: Cough[ICD10: R05] Diagnosis: Acute recurrent maxillary sinusitis[ICD10: J01.01] Melonie Samuels MD, [facility] CPT-4: 66050 04/07/2016 47704 EST. PATIENT, LEVEL IV Diagnosis: Other acute sinusitis[ICD10: J01.80] Madhuri Samuels MD, [facility] CPT- 4: 33491 02/11/2016 ([id number]) 45617 EST. P ATIENT, LEVEL II Diagnosis: Other hypertrophic disorders of the skin[ICD10: L91.8] [facility] MD, [facility] CPT-4: 94303 12/02/2015 ([id number]) OFFICE VISI T, NEW - LEVEL 4 Diagnosis: Other acute sinusitis[ICD10: J01.80] Diagnosis: Acute upper respiratory infection, unspecified[ICD10: J06.9] Madhuri Samuels MD, [facility] CPT-4: 08822 09/29/2015 Plan of Care Planned Activity Notes [...] in the nasal steroid allergy spray. 05/13/2018 Patient Education: Patient Medication Summary Completed 05/13/2018 Appointment: Melonie Chacko WPtel: [address] [place], [place] [phone] (15 min) Moderate 03/07/2018 Visit Plan: Costochondritis [...] symptoms improve. 12/19/2017 Appointment: [facility] WPtel: [facility] (15 min) Moderate 12/19/2017 Patient Education: [...] or concerns. 09/13/2017 Appointment: Madhuri Villegas WPtel: [facility] [address] (15 min) Moderate 09/13/2017 Patient Education: Patient Medication Summary Completed 09/13/2017 Care Plan: Referral Order SNOMED-CT : [id number] Pending 09/13/2017 Visit Plan: Sinusitis - Pt has acut e infection - pain in face, maxillary region, Pt informed to use decongestant, RX given to patient, sinus rinses also recommended. Call if symptoms do not show improvement. 10/23/2016 Appointment: Melonie Chacko WPtel: [phone] [place] (30 min) Complex 10/23/2016 Patient Education: Patient [...] temporal arteritis. 06/27/2016 Appointment: [facility] Samuels WPtel: [address] [place], [place] [phone] [place] (15 min) Moderate 06/27/2016 Patient Education: Patient [...] show improvement. 04/07/2016 Appointment: Melonie Chacko WPtel: [phone] [phone] (30 min) Complex 04/07/2016 Patient Education: Patient Medication Summary Completed 04/07/2016 Patient Education: Obesity Completed 04/07/2016 Visit Plan: Sinusitis - Pt has acut e infection - pain in face, maxillary region, Pt informed to use decongestant, RX given to patient, sinus rinses also recommended. Call if symptoms do not show improvement. 02/11/2016 Appointment: [phone] (15 min) Moderate 02/11/2016 Patient Education: Patient Medication Summary Completed 02/11/2016 Patient Education: Obesity Completed 02/11/2016 Visit Plan: Skin tags - appear donna gn - no removal necessary at this time - if changes occur then would consider removal. skin tag on right nasal bridge - no removal - watchful waiting. 12/02/2015 Appointment: [facility] [place] (15 min) Moderate 12/02/2015 Patient Education: Patient [...] symptoms do not show improvement. 09/29/2015 Appointment: [facility] Chackohanie [facility]Ptel[phone] New Patient 09/29/2015 Patient Education: Patient Medication [...]
[2020-01-08] MEDS ORDERED: ONDANSETRON 4 MG/2 ML (SDV) Z0FRAN ONE (10:30)
[2020-01-08] MEDS ORDERED: NEOSTIGMINE 3 MG/3 ML VIAL ONE (10:30)
[2020-01-08] MEDS ORDERED: LIDOCAINE PF 2% 5 ML (XYLOCAINE) VIAL ONE (10:30)
[2020-01-08] MEDS ORDERED: ROCURONIUM 10 MG/ML 5 ML SYRINGE IV ONE (10:30)
[2020-01-08] MEDS ORDERED: GLYCOPYRROLATE 0.2 MG/ML (ROBINUL) 2 ML VIAL ONE (10:30)
[2020-01-08] MEDS ORDERED: proPOfol 200 MG/20 ML (DIPRIVAN) VIAL IV ONE (10:30)
[2020-01-08] MEDS ORDERED: MIDAZOLAM 2 MG/2 ML (VERSED) VIAL ONE (10:31)
[2020-01-08] MEDS ORDERED: fentaNYL INJECTION 100 MCG/2 ML AMP ONE (10:31)
[2020-01-08] MEDS ORDERED: SEVOFLURANE (ULTANE) 15 ML INHAL SOLN ONE ×3 (10:33→12:06)
[2020-01-08] MEDS ORDERED: BUP/EPI 0.5% 1:200,000 (MARCAINE) 10ML VIAL IJ ONE (11:00)
--- NOTE | 2020-01-08 12:42 | Progress Note-Post Operative ---
Post-Operative Progess Note Surgeon (s)/School Speech Language Pathologist (s) Surgeon LUIS MANUEL BUTLER MD School Speech Language Pathologist: guillermo martinez INBOUND SALES ADVISOR Pre-Operative Diagnosis sx reducible right inguinal hernia Post-Operative Diagnosis sx reducible right indirect ing hernia Procedure & Operative Findings Date of Procedure 01/08/20 Procedure Performed/Findings laparoscopic inguinal hernia repair with mesh. Anesthesia Type get Estimated Blood Loss Estimated blood loss (mL): minimal Specimens/Packing Specimens Removed none LUIS MANUEL BUTLER MD Jan 08, 2020 12:42
--- NOTE | 2020-01-08 12:54 | Anesthesia-General Post-Op ---
General Patient Condition Mental Status/LOC: Same as Preop Cardiovascular: Satisfactory Nausea/Vomiting: Absent Respiratory: Satisfactory Pain: Controlled Complications: Absent Post Op Complications Complications None Follow Up Care/Instructions Patient Instructions None needed. Anesthesia/Patient Condition Patient Condition Patient is doing well, no complaints, stable vital signs, no apparent adverse anesthesia problems. No complications reported per nursing. IAN TALBOT CRNA Jan 08, 2020 12:53
[2020-01-08] MEDS ORDERED: PROMETHAZINE INJ 25 MG/ML (PHENERGAN) AMP IVP ONE (13:00)
[2020-01-08] MEDS ORDERED: morphine INJ 10 MG/ML 1ML (SYR OR VIAL) IVP ONE (13:00)
[2020-01-08] MEDS ORDERED: MEPERIDINE (DEMEROL) INJ 50 MG/ML IVP ONE (13:00)
[2020-01-08] MEDS ORDERED: fentaNYL INJECTION 100 MCG/2 ML AMP IVP ONE (13:00)
[2020-01-08] MEDS ORDERED: HYDROcodone/APAP 7.5 MG/325 MG (LORTAB, LORCET PLUS) TABLET PO ONE ×2 (13:54→14:00)
--- NOTE | 2020-01-08 17:07 | OPERATIVE REPORT ---
DATE OF SERVICE: 01/08/2020 ATTENDING PRIMARY CARE PHYSICIAN: Dr. [facility]. PREOPERATIVE DIAGNOSIS: Symptomatic right inguinal hernia. POSTOPERATIVE DIAGNOSIS: Symptomatic reducible right indirect inguinal hernia. PROCEDURE PERFORMED: Laparoscopic right inguinal hernia repair with mesh. SURGEON: Luis Manuel Butler MD. ANESTHESIA: General endotracheal. ESTIMATED BLOOD LOSS: Minimal. FINDINGS: Same as postoperative diagnosis. DISPOSITION: The patient tolerated the procedure well. INDICATIONS FOR PROCEDURE: The patient is a 34-year-old male, who developed pain and swelling in the inguinal region. He was initially seen by urology, was found to have bilateral varicoceles. On further examination by urology, he was found to have a right inguinal hernia. 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 He states that he does have pain in the right inguinal region, especially upon heavy exertion with a palpable bulge. He does not report any symptoms on the left side. He is otherwise eating well and having normal bowel movements. DESCRIPTION OF PROCEDURE: The patient was brought to the operating room and laid supine on the table. After adequate IV pain and sedative medications and general endotracheal intubation, the abdomen was prepped and draped in a standard surgical fashion. A 0.5% Marcaine with epinephrine was used to anesthetize the overlying skin in the infraumbilical rim and a transverse skin incision was made using a 15 blade. A sharp towel clamp was applied in the abdominal wall, retracting anteriorly. A Veress needle inserted with low opening pressure of 0 mmHg. The abdomen was then insufflated to 15 mmHg pressure. The Veress needle was removed and a 10 mm XL trocar was placed followed by a 10 mm 45-degree angle laparoscope visualizing the peritoneal cavity. A four-quadrant abdominal exploration was performed. A right indirect inguinal hernia was identified with nothing within the hernia sac. There was no left inguinal hernia component. What was visualized of the omentum, small bowel and colon appeared normal. Under direct visualization, we then proceeded to place bilateral 5 mm ports after the skin and peritoneal lining were anesthetized using 0.5% Marcaine with epinephrine and transverse skin incision was made using a 15 blade. The patient was then placed in a Trendelenburg position and a window was then created along the peritoneal lining starting laterally towards the conjoint tendon and inguinal ligament using the Sonicision. We then proceeded medially towards Igor's ligament. We then proceeded with inferior dissection encompassing the entire hernia sac using blunt dissection as well as the Sonicision. The cord and its surrounding contents were identified and spared throughout the process. A medium sized 3DMax polypropylene mesh was then placed into the peritoneal cavity through the 10 mm port site and tacked to Igor's ligament medially with the absorbable tacks and to the conjoint tendon laterally. The peritoneal lining was then placed over the mesh and a few absorbable tacks were placed to hold this in place with visualization of good hemostasis. The 10 mm port site fascia and peritoneum were then closed under direct visualization using a Kavon-Patricia device and 0 Vicryl suture. The abdomen was desufflated and remaining were ports removed. All skin incisions were closed using 4-0 Monocryl running subcuticular sutures. Wounds were then cleaned and covered with Dermabond. The patient tolerated the procedure well. We will start IV normal pain medication as well as a clear liquid diet. Once he is tolerating clears, has good pain control with oral pain medications and ambulating well, we will discharge him home. He will be instructed to do no heavy lifting or exertion for the first 2 weeks and then slowly incorporate some lifting and exertion until he reaches six weeks from the surgery date and at that time, he does not have any restrictions. Job ID: [id number] DocumentID: [id number] Dictated Date: 01/08/2020 12:42:59 Butadiene Convertor Operator Date: 01/08/2020 17:06:41 Dictated By: LUIS MANUEL BUTLER MD
== END 2020-01-08 15:25 | disposition home or self-care (01) ==
LOC: SDC 09:31
PROVIDERS: ATTEND Surgery
DX: K40.90 Unilateral inguinal hernia, without obstruction or gangrene, not specified as recurrent (principal); I86.1 Scrotal varices; Z11.2 Encounter for screening for other bacterial diseases; I38 Endocarditis, valve unspecified
CPT/HCPCS: 49650; 85025; 87081; 94664; C1781; 36415

== ENCOUNTER → 2021-04-25 | Outpatient (CLI) | payer OTHER ==
[~2021-04-25] MED LIST changes: -GADOBUTROL 10 MMOL/10 ML (GADAVIST) VIAL IV ONE; +HYDR-3817 PO
--- NOTE | 2021-04-25 13:19 | Diagnostic Imaging Report ---
Neck pain and radiculopathy. FINDINGS: Five views of the cervical column demonstrate normal alignment. Minimal degenerative disc disease is present. There is no osseous lesion or fracture. IMPRESSION: Minimal degenerative disc disease. Dictated by: Dictated on workstation # [id number]
--- NOTE | 2021-04-25 13:25 | Diagnostic Imaging Report ---
INDICATION: Mid back pain. COMPARISON: None. FINDINGS: Two views of the thoracic column demonstrate normal alignment. There is no subluxation, fracture, or osseous lesion. There is no degeneration. IMPRESSION: Negative thoracic spine. Dictated by: Dictated on workstation # [id number]
--- NOTE | 2021-04-25 14:24 | Diagnostic Imaging Report ---
INDICATION: Chronic right shoulder pain. History of old injury. FINDINGS: Three views of the right shoulder show no fracture, dislocation, or other abnormality. IMPRESSION: Normal right shoulder. Dictated by: Dictated on workstation # [id number]
== END ==
LOC: RAD 12:19
PROVIDERS: ATTEND Family Medicine
DX: M54.12 Radiculopathy, cervical region (principal); M54.6 Pain in thoracic spine; M25.511 Pain in right shoulder; Z87.828 Personal history of other (healed) physical injury and trauma
CPT/HCPCS: 72040; 72072; 73030

== ENCOUNTER → 2022-03-07 | Outpatient (CLI) | payer OTHER ==
[2022-03-07 09:55] VITALS: BP 110/90
== END ==
LOC: CARD 09:00
PROVIDERS: ATTEND Internal Medicine Cardiovascular Disease
DX: R00.2 Palpitations (principal); R07.89 Other chest pain
CPT/HCPCS: 93225; 93226; C8929; C8930; 93306

== ENCOUNTER → 2022-07-19 | Outpatient (CLI) | payer OTHER ==
--- NOTE | 2022-07-19 16:05 | Diagnostic Imaging Report ---
EXAMINATION: Right elbow radiograph, 3 views. COMPARISON: None. HISTORY: 36-year-old male, right elbow pain. FINDINGS: There is no identified acute fracture. There is no current dislocation. There is no elbow joint effusion. There is no radiopaque foreign body. There is a small ossification measuring approximately 3 mm in size projecting near the trochlea of unclear exact etiology or significance. IMPRESSION: 1. No identified acute fracture. 2. Elbow is not currently dislocated. 3. No elbow joint effusion. Dictated by: Dictated on workstation # [id number]
--- NOTE | 2022-07-19 16:12 | Diagnostic Imaging Report ---
INDICATION: Right shoulder pain, prior surgery. EXAMINATION: Right shoulder 07/19/2022. COMPARISON: 04/25/2021 FINDINGS: 3 views of the shoulder. There is a sideplate along the anterior border of the proximal one third of the humerus. No fractures or dislocations appreciated. IMPRESSION: 1. Chronic changes with no acute process appreciated. Dictated by: Dictated on workstation # [id number]
--- NOTE | 2022-07-19 16:30 | Diagnostic Imaging Report ---
INDICATION: Chronic back pain. COMPARISON: None FINDINGS: Frontal and lateral views of the lumbar spine were obtained. Alignment and vertebral heights are maintained. There is no fracture or destructive process. Limited views of the abdomen demonstrate nonobstructive bowel gas pattern. IMPRESSION: 1. No acute fracture or dislocation of the lumbar spine. Dictated by: Dictated on workstation # [id number]
--- NOTE | 2022-07-19 16:30 | Diagnostic Imaging Report ---
INDICATION: Back pain COMPARISON: None FINDINGS: Frontal and lateral views of the thoracic spine were obtained. Visualization of the upper thoracic spine is limited on the lateral projection. Alignment and vertebral heights are maintained. There is no fracture or destructive process. There are no large paraspinal masses. Limited views of the lungs are clear. IMPRESSION: 1. No acute fracture or dislocation of the thoracic spine. Dictated by: Dictated on workstation # [id number]
--- NOTE | 2022-07-19 16:41 | Diagnostic Imaging Report ---
INDICATION: Neck and shoulder pain AP, lateral and odontoid views of the cervical spine are obtained with comparison made to study of 04/25/2021. There is reversal of cervical lordosis centered at the C3-C4 level. Vertebral body heights are maintained. There is mild narrowing of the C5-C6 and C6-C7 disc spaces. There is possible faint calcification posterior to C2 spinous process which could represent an avulsion injury. This could be nonacute in nature. The odontoid is intact. IMPRESSION: Reversal of the cervical lordosis could be secondary to muscle spasm or positioning. There is a questionable calcification posterior to C2 spinous process possibly related to a nonacute avulsion injury. Clinical correlation would be of value. Dictated by: Dictated on workstation # [id number]
== END ==
LOC: RAD 14:00
PROVIDERS: ATTEND Nurse Practitioner Family
DX: M54.50 Low back pain, unspecified (principal); G89.29 Other chronic pain; M25.521 Pain in right elbow; M25.511 Pain in right shoulder; M54.6 Pain in thoracic spine; M54.2 Cervicalgia; Z98.890 Other specified postprocedural states
CPT/HCPCS: 72040; 72072; 72100; 73030; 73080

== ENCOUNTER → 2022-08-17 | Outpatient (CLI) | payer OTHER ==
--- NOTE | 2022-08-17 13:04 | Diagnostic Imaging Report ---
PROCEDURE: MR imaging cervical spine without contrast. TECHNIQUE: Multiplanar, multisequence MR imaging of the cervical spine was performed without contrast. INDICATION: Neck and shoulder pain COMPARISON: 09/19/2017. FINDINGS: Alignment cervical spine remains unchanged. No fracture concerning marrow replacing process. No disc bulges or herniations are developed. No spinal canal stenosis or neuroforaminal narrowing. The short segment of fluid-filled distention of the central canal posterior to C4-C5 is unchanged. This measures up to 2 mm in diameter and extends over a length of 10 mm. There is no surrounding T2 hyperintense signal within the cervical cord. IMPRESSION: 1. 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 2. No spinal canal stenosis has developed. Dictated by: Dictated on workstation # [id number]
== END ==
LOC: RAD 08:44
PROVIDERS: ATTEND Family Medicine
DX: M54.2 Cervicalgia (principal); M25.519 Pain in unspecified shoulder
CPT/HCPCS: 72141